=== PATIENT | female | born 1995 | race Caucasian/White ===

== ENCOUNTER 2017-12-13 09:13 | Emergency (ER) | payer OTHER, SELFPAY ==
[2017-12-13 09:21] VITALS: BP 118/63; PULSE 72; RESP 14; TEMP 36.7; O2SAT 98; BMI 31.4
--- NOTE | 2017-12-13 09:40 | ED.FEMALEGU ---
HPI - Female Genitourinary General Chief complaint: Urogenital-Female Stated complaint: POSSIBLE BLADDER INFECTION Time Seen by Provider: 12/13/17 09:17 Source: patient and RN notes reviewed Mode of arrival: ambulatory Limitations: no limitations History of Present Illness HPI Narrative: Patient is a 22-year-old female who presents with painful frequent urination. She says started up about 3 or 4 days ago. Her came home from to appointment a week ago. She denies any flank pain abdominal pain nausea vomiting or fevers. She is taking Pyridium which is not helping. MD Complaint: UTI Related Data Home Medications Medication Instructions Recorded Confirmed 1 tab PO DAILY 12/02/17 12/02/17 vitamin,calcium,zbzpvdrt-gkgf-ltnoz acid tablet ranitidine 75 mg tablet 75 mg PO BID PRN 12/02/17 12/02/17 Previous Rx's Medication Instructions Recorded sulfamethoxazole-trimethoprim 1 tab PO BID 5 Days #10 tab 12/13/17 [Bactrim DS] Allergies Allergy/AdvReac Type Severity Reaction Status Date / Time No Known Drug Allergies Allergy Unverified 12/02/17 10:55 Review of Systems Review of Systems All systems reviewed & are unremarkable except as noted in HPI and below Constitutional Denies chills, Denies fever(s), Denies lethargy and Denies weakness Cardiovascular Denies dyspnea and Denies dyspnea on exertion Respiratory Denies cough, Denies dyspnea, Denies dyspnea on exertion and Denies wheezing Gastrointestinal Gastrointestinal: Denies abdominal pain, Denies change in bowel habits, Denies diarrhea, Denies nausea and Denies vomiting Genitourinary Reports system reviewed and no additional complaints, except as docu Neurologic Denies weakness Allergic/Immunologic Denies wheezing [facility] Medical History Situational anxiety (Chronic) Irritable bowel syndrome (Chronic) Family History Grandfather Diabetes mellitus Heart disease Father Cancer Social History Smoking Status: Never smoker second hand exposure: No substance use type: does not use Exam Initial Vital Signs Initial Vital Signs: Vital Signs Temperature 98.0 F 12/13/17 09:21 Pulse Rate 72 12/13/17 09:21 Respiratory Rate 14 12/13/17 09:21 Blood Pressure 118/63 12/13/17 09:21 Pulse Oximetry 98 12/13/17 09:21 Const General: cooperative and well developed Nutritional Appearance: well nourished Orientation: alert, awake, oriented x3 and not confused GI Inspection: non-distended Palpation: soft, no hepatosplenomegaly, No guarding, No pulsatile mass and No tender Auscultation: normal bowel sounds General: bimanual renal exam normal bilaterally and No CVA tenderness Skin General: no rashes or lesions noted, No jaundice and No petechiae Neuro General: alert, awake and oriented x3 Course Orders Ordered: ED Orders 12/13/17 09:25 Urinalysis and Microscopic Stat Vital Signs - 8 hr 12/13/17 09:21 Temperature 98.0 F Pulse Rate 72 Respiratory Rate 14 Blood Pressure 118/63 Pulse Oximetry 98 MDM - Female Genitourinary Lab Data Attestation: I reviewed the patient's lab results. Lab Results 12/13/17 Range/Units 09:25 Urine Color Dark yellow Urine Appearance Clear Urine pH 7.5 (4.5-8.0) Ur Specific [place] 1.015 (1.000-1.035) Urine Protein 1+ H (Negative) Urine Glucose (UA) Trace H (Negative) g/dL Urine Ketones Negative (NEGATIVE) Urine Occult Blood 3+ H (Negative) Urine Nitrate Positive H (Negative) Urine Bilirubin Negative (NEGATIVE) Urine Urobilinogen 1.0 (0.2) E.U./dL Ur Leukocyte Esterase Trace H (NEGATIVE) Urine RBC 1-5/hpf (0-5/HPF) Urine WBC 0-1/hpf (0-5/HPF) Ur Squamous Epith Cells 10-30 /hpf H Urine Bacteria Few (2-10) H (None) Urine Mucus 1+ H (Negative) Ur Culture Indicated? Not Reportable Micro UA Comment Discharge Plan Departure Patient Disposition: Home, Self-Care Clinical Impression: Urinary tract infection Discharge Date/Time: 12/13/17 10:11 Interventions: ED Discharge Assessment Last Done: 12/13/17 10:09 Instructions: DI for Urinary Tract Infection (UTI) Activity Restrictions/Additional Instructions: *You have been diagnosed with UTI *What to do: increase fluids *Take medications as directed *Follow up with your primary care provider in 2-3 days *Return to ER if you should have any new, worsening or concerning symptoms Prescriptions: New sulfamethoxazole-trimethoprim [Bactrim DS] 800-160 mg tablet 1 tab PO BID 5 Days Qty: 10 RF: 0 No Action ranitidine HCl [Zantac 75] 75 mg tablet 75 mg PO BID PRNRF: 0 prenat.vits,reinaldo,arn-jriz-xurmn [ Vitamin] tablet 1 tab PO DAILY RF: 0 Referrals: Nuria Dorsey MD [Primary Care Provider] -
[2017-12-13 09:41] LABS: Appearance Urine UA CLEAR; Bilirubin Urine UA NEGATIVE (NEGATIVE); Glucose Urine UA TRACE g/dL (Negative); Ketones Urine UA NEGATIVE (NEGATIVE); Leukocyte Esterase Urine UA TRACE (NEGATIVE); Nitrite Urine UA POSITIVE (Negative); Occult Blood Urine UA 3+ (Negative); Protein Urine UA 1+ (Negative); Specific Gravity Urine UA 1.015 (1.000-1.035); pH Urine UA 7.5 (4.5-8.0)
[2017-12-13 09:44] LABS: Color Urine UA Dark Yellow
--- NOTE | 2017-12-13 09:54 | ED_ITS ---
HPI - Female Genitourinary General Chief complaint: Urogenital-Female Stated complaint: POSSIBLE BLADDER INFECTION Time Seen by Provider: 12/13/17 09:17 Source: patient and RN notes reviewed Mode of arrival: ambulatory Limitations: no limitations History of Present Illness HPI Narrative: Patient is a 22-year-old female who presents with painful frequent urination. She says started up about 3 or 4 days ago. Her came home from to appointment a week ago. She denies any flank pain abdominal pain nausea vomiting or fevers. She is taking Pyridium which is not helping. MD Complaint: UTI Related Data Home Medications Medication Instructions Recorded Confirmed 1 tab PO DAILY 12/02/17 12/02/17 vitamin,calcium,gztykfhs-loba-corot acid tablet ranitidine 75 mg tablet 75 mg PO BID PRN 12/02/17 12/02/17 Previous Rx's Medication Instructions Recorded sulfamethoxazole-trimethoprim 1 tab PO BID 5 Days #10 tab 12/13/17 [Bactrim DS] Allergies Allergy/AdvReac Type Severity Reaction Status Date / Time No Known Drug Allergies Allergy Unverified 12/02/17 10:55 Review of Systems Review of Systems All systems reviewed & are unremarkable except as noted in HPI and below Constitutional Denies chills, Denies fever(s), Denies lethargy and Denies weakness Cardiovascular Denies dyspnea and Denies dyspnea on exertion Respiratory Denies cough, Denies dyspnea, Denies dyspnea on exertion and Denies wheezing Gastrointestinal Gastrointestinal: Denies abdominal pain, Denies change in bowel habits, Denies diarrhea, Denies nausea and Denies vomiting Genitourinary Reports system reviewed and no additional complaints, except as docu Neurologic Denies weakness Allergic/Immunologic Denies wheezing [facility] Medical History Situational anxiety (Chronic) Irritable bowel syndrome (Chronic) Family History Grandfather Diabetes mellitus Heart disease Father Cancer Social History Smoking Status: Never smoker second hand exposure: No substance use type: does not use Exam Initial Vital Signs Initial Vital Signs: Vital Signs Temperature 98.0 F 12/13/17 09:21 Pulse Rate 72 12/13/17 09:21 Respiratory Rate 14 12/13/17 09:21 Blood Pressure 118/63 12/13/17 09:21 Pulse Oximetry 98 12/13/17 09:21 Const General: cooperative and well developed Nutritional Appearance: well nourished Orientation: alert, awake, oriented x3 and not confused GI Inspection: non-distended Palpation: soft, no hepatosplenomegaly, No guarding, No pulsatile mass and No tender Auscultation: normal bowel sounds General: bimanual renal exam normal bilaterally and No CVA tenderness Skin General: no rashes or lesions noted, No jaundice and No petechiae Neuro General: alert, awake and oriented x3 Course Orders Ordered: ED Orders 12/13/17 09:25 Urinalysis and Microscopic Stat Vital Signs - 8 hr 12/13/17 09:21 Temperature 98.0 F Pulse Rate 72 Respiratory Rate 14 Blood Pressure 118/63 Pulse Oximetry 98 MDM - Female Genitourinary Lab Data Attestation: I reviewed the patient's lab results. Lab Results 12/13/17 Range/Units 09:25 Urine Color Dark yellow Urine Appearance Clear Urine pH 7.5 (4.5-8.0) Ur Specific [place] 1.015 (1.000-1.035) Urine Protein 1+ H (Negative) Urine Glucose (UA) Trace H (Negative) g/dL Urine Ketones Negative (NEGATIVE) Urine Occult Blood 3+ H (Negative) Urine Nitrate Positive H (Negative) Urine Bilirubin Negative (NEGATIVE) Urine Urobilinogen 1.0 (0.2) E.U./dL Ur Leukocyte Esterase Trace H (NEGATIVE) Urine RBC 1-5/hpf (0-5/HPF) Urine WBC 0-1/hpf (0-5/HPF) Ur Squamous Epith Cells 10-30 /hpf H Urine Bacteria Few (2-10) H (None) Urine Mucus 1+ H (Negative) Ur Culture Indicated? Not Reportable Micro UA Comment Discharge Plan Departure Patient Disposition: Home, Self-Care Clinical Impression: Urinary tract infection Discharge Date/Time: 12/13/17 10:11 Interventions: ED Discharge Assessment Last Done: 12/13/17 10:09 Instructions: DI for Urinary Tract Infection (UTI) Activity Restrictions/Additional Instructions: *You have been diagnosed with UTI *What to do: increase fluids *Take medications as directed *Follow up with your primary care provider in 2-3 days *Return to ER if you should have any new, worsening or concerning symptoms Prescriptions: New sulfamethoxazole-trimethoprim [Bactrim DS] 800-160 mg tablet 1 tab PO BID 5 Days Qty: 10 RF: 0 No Action ranitidine HCl [Zantac 75] 75 mg tablet 75 mg PO BID PRNRF: 0 prenat.vits,reinaldo,ysk-plfz-rpgtp [ Vitamin] tablet 1 tab PO DAILY RF: 0 Referrals: Nuria Dorsey MD [Primary Care Provider] -
[2017-12-13 10:05] LABS: Bacteria Urine Few (2-10); Mucus Urine 1+ (Negative); RBC Urine 1-5/HPF (0-5/HPF); Squamous Epithelial Cell Urine 10-30 /HPF; WBC Urine 0-1/HPF (0-5/HPF)
== END 2017-12-13 10:11 | disposition home or self-care (01) ==
PROVIDERS: Emergency Provider Emergency Medicine; PCP Family Medicine
DX: N39.0 Urinary tract infection, site not specified (principal)
CPT/HCPCS: 81001; 81025; 99283

== ENCOUNTER 2017-12-21 10:00 | Emergency (ER) | payer OTHER, SELFPAY ==
[2017-12-21 10:21] VITALS: BP 115/69; PULSE 79; RESP 13; TEMP 36.5; O2SAT 98
[2017-12-21 10:37] LABS: Appearance Urine UA SL CLOUDY; Bilirubin Urine UA NEGATIVE (NEGATIVE); Color Urine UA YELLOW; Glucose Urine UA NEGATIVE (Normal); Ketones Urine UA NEGATIVE (NEGATIVE); Leukocyte Esterase Urine UA 2+ (NEGATIVE); Nitrite Urine UA Negative (Negative); Occult Blood Urine UA NEGATIVE (Negative); Protein Urine UA NEGATIVE (Negative); Specific Gravity Urine UA 1.025 (1.000-1.035); Urobilinogen Urine UA 0.2 E.U./dL (0.2); pH Urine UA 5.5 (4.5-8.0)
[2017-12-21 10:42] LABS: Bacteria Urine Many (>30); Culture Indicated Urine Cult Not Indicated; RBC Urine None Seen (0-5/HPF); Squamous Epithelial Cell Urine 10-30 /HPF; WBC Urine 10-30/HPF (0-5/HPF)
[2017-12-21 11:34] VITALS: BP 110/72; PULSE 70; RESP 20; O2SAT 98
--- NOTE | 2017-12-21 11:51 | ED.FEMALEGU ---
HPI - Female Genitourinary General Chief complaint: Urogenital-Female Stated complaint: BLADDER INFECTION Time Seen by Provider: 12/21/17 10:10 History of Present Illness HPI Narrative: HPI 22-year-old female presents for evaluation of 1+ weeks of dysuria, urinary frequency, and vaginal discomfort without discharge. Patient reports that she was seen one week ago for urinary tract infection, prescribed antibiotics (chart review indicates Bactrim) which she took without improvement of symptoms. ROS with no recent constitutional symptoms. Exam Gen: Pleasant, nontoxic-appearing, resting comfortably. HEENT: NC, AT, PEERL, EOMI. Resp: Unlabored respirations with a normal work of breathing. Card: Extremities warm and well perfused. GI: Non-distended. : Deferred MSK: No visible deformities, strength and tone without visually appreciable deficit. Neuro: AO x 3, no facial asymmetry, vision and hearing WNL. Heme/Lymph: Deferred Skin: Normal color with no visible lesions (other than noted above). Psych: Mood and affect appropriate. UA - negative nitrate, 2+ leukocyte esterase, no RBCs, 10-30 WBCs, 10-30 squamous epithelial cells, many bacteria. Negative urine test MDM Previous chart, nursing note, and vitals reviewed. A: 22-year-old female presents for evaluation of 1+ weeks of dysuria, urinary frequency, and vaginal discomfort without discharge. DDx & Evaluation: patient's urinalysis is suggestive of urinary tract infection, however the large amount of squamous epithelial cells and negative nitrates indicates that this is an equivocal study. Discussed with the patient time of evaluation would be that if initial urinalysis is unclear pelvic exam would be necessary to evaluate for other explained etiologies the patient's symptoms. A repeat urinalysis and pelvic exam were ordered. The patient declined these as she stated that she has an appointment elsewhere. Patient declined further evaluation. Patient was prescribed cephalexin to treat possibly urinary tract infection and discharged against medical advice as are his ongoing concern of a missed diagnosis. The patient was discharged against medical advice. The patient had capacity as they were clinically sober, free from distracting injury, and they appear to have intact insight and judgment and reason and in my opinion have the capacity to make decisions. I am concerned about the patient's lack of a complete valuation including concerns for PID, infertility, future ectopic pregnancies, or the development of pyelonephritis due to lack of adequate urine culture and inappropriate antimicrobial choice. At the time of discharge, the patient's evaluation is limited as the patient declined repeat urinalysis and a pelvic exam. Impression: dysuria (please reference below for remainder of encounter information) Related Data Home Medications Medication Instructions Recorded Confirmed 1 tab PO DAILY 12/02/17 12/21/17 vitamin,calcium,eqabgxhl-jmko-erlgh acid tablet ranitidine 75 mg tablet 75 mg PO BID PRN 12/02/17 12/21/17 Allergies Allergy/AdvReac Type Severity Reaction Status Date / Time No Known Drug Allergies Allergy Unverified 12/02/17 10:55 [facility] Family History Grandfather Diabetes mellitus Heart disease Father Cancer Social History Smoking Status: Never smoker second hand exposure: No substance use type: does not use Exam Initial Vital Signs Initial Vital Signs: Vital Signs Temperature 97.7 F 12/21/17 10:21 Pulse Rate 79 12/21/17 10:21 Respiratory Rate 13 12/21/17 10:21 Blood Pressure 115/69 12/21/17 10:21 Pulse Oximetry 98 12/21/17 10:21 Course Orders Ordered: ED Orders 12/21/17 10:20 Urinalysis and Microscopic Stat 12/21/17 11:01 GC Screen Stat Urinalysis and Microscopic Stat Wet Prep Tric BV [place]iz[place] Stat Discontinued Medications Diphenhydramine HCl (Benadryl) 25 mg IV NOW ONE Stop: 12/21/17 11:32 Last Admin: 12/21/17 11:35 Dose: Not Given Haloperidol (Haldol) 3 mg IV NOW ONE Stop: 12/21/17 11:32 Last Admin: 12/21/17 11:35 Dose: Not Given Vital Signs - 8 hr 12/21/17 10:21 12/21/17 11:34 Temperature 97.7 F Pulse Rate 79 70 Respiratory Rate 13 20 Blood Pressure 115/69 Blood Pressure [Right Arm] 110/72 Pulse Oximetry 98 98 MDM - Female Genitourinary Lab Data Lab Results 12/21/17 Range/Units 10:20 Urine Color Yellow Urine Appearance Sl cloudy Urine pH 5.5 (4.5-8.0) Ur Specific [place] 1.025 (1.000-1.035) Urine Protein Negative (Negative) Urine Glucose (UA) Negative (Normal) g/dL Urine Ketones Negative (NEGATIVE) Urine Occult Blood Negative (Negative) Urine Nitrate Negative (Negative) Urine Bilirubin Negative (NEGATIVE) Urine Urobilinogen 0.2 (0.2) E.U./dL Ur Leukocyte Esterase 2+ H (NEGATIVE) Urine RBC None seen (0-5/HPF) Urine WBC 10-30/hpf H (0-5/HPF) Ur Squamous Epith Cells 10-30 /hpf H Urine Bacteria Many (>30) H (None) Ur Culture Indicated? Cult not indicated Micro UA Comment Not Reportable Discharge Plan Departure Prescriptions: No Action ranitidine HCl [Zantac 75] 75 mg tablet 75 mg PO BID PRN (Reason: Acid Reflux) RF: 0 prenat.vits,reinaldo,xtv-amls-asmlj [ Vitamin] tablet 1 tab PO DAILY RF: 0
== END 2017-12-21 11:58 | disposition home or self-care (01) ==
PROVIDERS: Emergency Provider Emergency Medicine; PCP Family Medicine
DX: R30.0 Dysuria (principal)
CPT/HCPCS: 81001; 81003; 81025; 99283

== ENCOUNTER → 2017-12-22 10:35 | Outpatient (CLI) | payer OTHER, SELFPAY ==
[2017-12-22 11:57] LABS: Add Manual Diff / Slide Review NO; Basophils Percent Auto 1.6 % (0-2); Eosinophils Percent Auto 3.3 % (2-4); Hematocrit 39.3 % (36-46); Hemoglobin 13.5 g/dL (12.0-16.0); Lymphocytes Percent Auto 39.4 % (25-40); Mean Corpuscular HGB Conc 34.3 % (30-36); Mean Corpuscular Hemoglobin 30.2 PG (26-34); Mean Corpuscular Volume 88.1 fL (80-100); Monocytes Percent Auto 8.7 % (3-14); Neutrophils Absolute Auto 2100 /uL (3000-5900); Platelet Count 196 X10^3/uL (150-400); Red Blood Cell Count 4.46 X10^6/uL (4.0-5.2); Red Cell Distribution Width 13.2 % (11.6-14.8); White Blood Cell Count 4.5 X10^3/uL (4.5-11.0)
[2017-12-22 12:34] LABS: TSH w/ Reflex to FT4 1.28 uIU/mL (0.47-4.68)
== END ==
PROVIDERS: PCP Family Medicine; Visit Provider Family Medicine
DX: R53.83 Other fatigue (principal)
CPT/HCPCS: 36415; 84443; 85025

== ENCOUNTER 2018-01-03 15:32 | Emergency (ER) | payer OTHER, SELFPAY ==
[2018-01-03 15:35] VITALS: BP 110/65; PULSE 80; RESP 20; TEMP 36.9; O2SAT 99
--- NOTE | 2018-01-03 17:10 | ED_ITS ---
HPI - General Chief complaint: Vaginal Bleeding Stated complaint: PELVIC PAIN ON GOING ISSUE Time Seen by Provider: 01/03/18 16:35 Source: patient Mode of arrival: ambulatory Limitations: no limitations History of Present Illness HPI Narrative: Patient is a 22-year-old female who was initially treated for UTI on December 13. She then had persistent ongoing symptoms. She was seen on December 21 in the ED were she did not want a pelvic done. She was seen on December 22 by her primary where she had swabs but no pelvic. She continues to have extreme vaginal pain burning and some itching. She has not noticed any smell. She has no lower abdominal pain. She has had multiple urines taken, but none have back actually grown any bacteria. She has not yet had a former pelvic exam willing to do so today. She also has appointment with a new OB this week. Complaint: vaginal discharge Related Data Home Medications Medication Instructions Recorded Confirmed 1 tab PO DAILY 12/02/17 12/21/17 vitamin,calcium,efrtrvtr-acis-lgwga acid tablet ranitidine 75 mg tablet 75 mg PO BID PRN 12/02/17 12/21/17 Previous Rx's Medication Instructions Recorded doxycycline hyclate 100 mg PO Q12H #14 cap 01/03/18 Allergies Allergy/AdvReac Type Severity Reaction Status Date / Time No Known Drug Allergies Allergy Unverified 12/02/17 10:55 Review of Systems Review of Systems GENERAL: Denies chills, fatigue, malaise, fever, sweats, travel HEENT: Denies sinus pain, ear pain, sore throat, difficulty swallowing, neck pain RESPIRATORY: Denies dyspnea, cough, wheezing, hemoptysis, sputum. CARDIOVASCULAR: Denies chest pain, palpitations, orthopnea, edema GASTROINTESTINAL: Denies nausea, vomiting, abdominal pain, diarrhea, constipation, melena. : Denies dysuria, frequency, incontinence, hematuria, urinary retention, flank pain. MUSCULOSKELETAL: Denies weakness, joint pain, or bony pain SKIN: No rash, no erythema, no pruritus NEUROLOGIC: Denies weakness, dizziness, headache, numbness, change in speech, confusion PSYCHIATRIC: No concerning psychosocial issues. 12 point review of systems is negative except for those stated above and HPI All systems reviewed & are unremarkable except as noted in HPI and below Constitutional Denies chills, Denies fever(s), Denies lethargy and Denies weakness Cardiovascular Denies chest pain, Denies irregular heart rhythm, Denies lightheadedness, Denies palpitations and Denies orthopnea Genitourinary Reports system reviewed and no additional complaints, except as docu and Reports as per HPI Musculoskeletal Denies back pain, Denies muscle weakness, Denies numbness and Denies tingling Neurologic Denies numbness, Denies tingling and Denies weakness Endocrine Denies palpitations PMFSH - Past Medical History Medical history: Reports no medical history Surgical history: Reports no surgical history Exam Initial Vital Signs Initial Vital Signs: Vital Signs Temperature 98.4 F 01/03/18 15:35 Pulse Rate 80 01/03/18 15:35 Respiratory Rate 20 01/03/18 15:35 Blood Pressure 110/65 01/03/18 15:35 Pulse Oximetry 99 01/03/18 15:35 GENERAL: Well-appearing, well-nourished and in no acute distress. CARDIOVASCULAR: peripheral pulses in tact, cap refill <2 sec RESPIRATORY: No respiratory distress, speaks in full sentences without difficulty ABDOMEN: Soft, nontender, no guarding or rebound EXTREMITIES: Normal range of motion, no clubbing or edema. Neurovascularly intact NEUROLOGICAL: Cranial nerves II through XII grossly intact. Normal gait and speech. SKIN: Warm, dry, no petechiae, no rashes or lesions. External Female Exam: external appearance normal, normal appearance of the urethra, no erythema, no tenderness externally and no external swelling Speculum Exam - Vagina: normal appearance of the vagina and abnormal vaginal discharge white and yellow Speculum Exam - Cervix: closed cervix and abnormal cervical discharge white; Negative for malodorous Bimanual Exam- Vagina & Uterus: normal bimanual exam Bimanual Exam- Adnexa, other: normal adnexae Course Orders Ordered: ED Orders 01/03/18 17:00 Test Urine Stat UA Complete [Urinalysis and Microscopic] Stat Urine Culture Stat Wet Prep Tric BV Rizwana Stat 01/03/18 17:10 Wet Prep Tric BV Riz[place]ana Stat 01/03/18 17:12 Genital Culture Stat 01/03/18 17:54 Genital Culture Stat Discontinued Medications Ceftriaxone Sodium (Rocephin) 250 mg IM NOW ONE Stop: 01/03/18 17:11 Vital Signs - 8 hr 01/03/18 15:35 01/03/18 17:56 Temperature 98.4 F Pulse Rate 80 66 Respiratory Rate 20 13 Blood Pressure 110/65 Blood Pressure [Right Arm] 110/53 L Pulse Oximetry 99 100 MDM - OB/Uterine Contractions Lab Data Lab Results 01/03/18 01/03/18 Range/Units 17:00 17:00 Urine Color Yellow Urine Appearance Clear Urine pH 5.5 (4.5-8.0) Ur Specific [place] 1.025 (1.000-1.035) Urine Protein Negative (Negative) Urine Glucose (UA) Negative (Normal) g/dL Urine Ketones Negative (NEGATIVE) Urine Occult Blood Negative (Negative) Urine Nitrate Negative (Negative) Urine Bilirubin Negative (NEGATIVE) Urine Urobilinogen 0.2 (0.2) E.U./dL Ur Leukocyte Esterase 1+ H (NEGATIVE) Urine RBC None seen (0-5/HPF) Urine WBC 1-5/hpf (0-5/HPF) Ur Squamous Epith Cells 0-1 /hpf D Urine Bacteria None seen (None) Ur Culture Indicated? Specimen cultured Micro UA Comment Not Reportable Urine Test Negative (Negative) MDM Narrative Medical decision making narrative: Patient's exam was quite tender and cervix is friable with lots of a vaginal and cervical discharge. At this time treat for presumed STD. She will follow up with OB this week where she could get results. Discharge Plan Departure Patient Disposition: Home, Self-Care Clinical Impression: Acute pelvic inflammatory disease (PID) Instructions: DI for Pelvic Inflammatory Disease Activity Restrictions/Additional Instructions: *You have been diagnosed with pelvic inflammatory disease *What to do: You have been treated for a presumed infection, cultures are still pending. Please check with you're provider this week on of results. If results are positive the emergency department will call you. If they are negative the emergency department will NOT be call. *Continue to take medications as directed Doxycycline 1 tab twice a day-faxed to [facility] in [place] *Follow up with your primary care provider in 2-3 days *Return to ER if you should have any new, worsening or concerning symptoms Prescriptions: New doxycycline hyclate 100 mg capsule 100 mg PO Q12H Qty: 14 RF: 0 No Action ranitidine HCl [Zantac 75] 75 mg tablet 75 mg PO BID PRN (Reason: Acid Reflux) RF: 0 prenat.vits,reinaldo,czl-sqke-idtmf [ Vitamin] tablet 1 tab PO DAILY RF: 0 Referrals: Nuria Dorsey MD [Primary Care Provider] -
--- NOTE | 2018-01-03 17:13 | PC.NURSE ---
primary complaint is worsening vaginal issues
[2018-01-03 17:28] LABS: Bacteria Urine None Seen; RBC Urine None Seen (0-5/HPF)
[2018-01-03 17:31] LABS: Appearance Urine UA CLEAR; Bilirubin Urine UA NEGATIVE (NEGATIVE); Color Urine UA YELLOW; Glucose Urine UA NEGATIVE (Normal); Ketones Urine UA NEGATIVE (NEGATIVE); Leukocyte Esterase Urine UA 1+ (NEGATIVE); Nitrite Urine UA Negative (Negative); Occult Blood Urine UA NEGATIVE (Negative); Protein Urine UA NEGATIVE (Negative); Specific Gravity Urine UA 1.025 (1.000-1.035); Urobilinogen Urine UA 0.2 E.U./dL (0.2); pH Urine UA 5.5 (4.5-8.0)
[2018-01-03 17:36] LABS: Pregnancy Test Urine Negative (Negative)
--- NOTE | 2018-01-03 17:38 | PC.NURSE ---
stand by assist with pelvic exam, pt tolerated well.
[2018-01-03 17:40] LABS: WBC Urine 1-5/HPF (0-5/HPF)
[2018-01-03 17:41] LABS: Culture Indicated Urine Specimen Cultured; Squamous Epithelial Cell Urine 0-1 /HPF
[2018-01-03 17:56] VITALS: BP 110/53; PULSE 66; RESP 13; O2SAT 100
[2018-01-03] MEDS: cefTRIAXone 500 MG VIAL 250 MG IM (18:01)
[2018-01-03 19:03] VITALS: BP 109/71; PULSE 68; RESP 17; TEMP 36.8; O2SAT 99
== END 2018-01-03 18:20 | disposition home or self-care (01) ==
PROVIDERS: Emergency Provider Emergency Medicine; PCP Family Medicine
DX: N73.0 Acute parametritis and pelvic cellulitis (principal)
CPT/HCPCS: 81001; 81025; 87070; 87077; 87086; 87205; 87210; 87491; 87591; 96372; 99282; 99283; J0696

== ENCOUNTER → 2018-10-08 11:31 | Outpatient (CLI) | payer OTHER, SELFPAY ==
[2018-10-08 12:06] LABS: Influenza A and B by PCR Rapid Negative (Negative)
== END ==
PROVIDERS: PCP Family Medicine; Visit Provider Registered Nurse
DX: J06.9 Acute upper respiratory infection, unspecified (principal)
CPT/HCPCS: 87400

== ENCOUNTER 2019-01-07 12:41 | Emergency (ER) | payer OTHER, SELFPAY ==
[2019-01-07 12:49] VITALS: BP 124/66; PULSE 99; RESP 16; TEMP 36.9; O2SAT 97; BMI 32.9
[2019-01-07 13:29] LABS: Add Manual Diff / Slide Review NO; Basophils Absolute Auto 100 /uL (0-100); Basophils Percent Auto 0.9 % (0-2); Eosinophils Absolute Auto 100 /uL (0-450); Eosinophils Percent Auto 1.8 % (2-4); Hematocrit 38.1 % (36-46); Lymphocytes Absolute Auto 1700 /uL (1100-4500); Lymphocytes Percent Auto 27.7 % (25-40); Mean Corpuscular HGB Conc 34.2 % (30-36); Mean Corpuscular Hemoglobin 30.5 PG (26-34); Mean Corpuscular Volume 89.1 fL (80-100); Monocytes Absolute Auto 900 /uL (0-900); Monocytes Percent Auto 14.7 % (3-14); Neutrophils Absolute Auto 3400 /uL (1500-7000); Neutrophils Percent Auto 54.9 % (50-75); Platelet Count 179 X10^3/uL (150-400); Red Blood Cell Count 4.28 X10^6/uL (4.0-5.2); Red Cell Distribution Width 12.9 % (11.6-14.8); White Blood Cell Count 6.2 X10^3/uL (4.5-11.0)
[2019-01-07 13:36] LABS: INR 1.1 (0.9-1.3); Prothrombin Time 12.4 SECONDS (10.1-12.7)
[2019-01-07 13:39] LABS: Alanine Aminotransferase 42 IU/L (9-52); Albumin 4.5 g/dL (3.5-5.0); Albumin Globulin Ratio 1.5 (1.0-2.8); Alkaline Phosphatase 98 U/L (38-126); Aspartate Aminotransferase 29 IU/L (14-36); Bilirubin Total 0.7 mg/dL (0.2-1.3); Blood Urea Nitrogen 14 mg/dL (7-17); Calcium 9.1 mg/dL (8.4-10.2); Carbon Dioxide 27 mmol/L (22-32); Chloride 103 mmol/L (98-107); Estimated Glomerular Filt Rate > 60.0 mL/min (>60); Glucose 114 mg/dL (70-100); HEMOLYSIS < 15 (0-50); Lipase 89 U/L (23-300); PTT Partial Thromboplastin Tim 33 SECONDS (26.4-36.2); Potassium 4.4 mmol/L (3.4-5.1); Sodium 138 mmol/L (137-145); Total Protein 7.5 g/dL (6.3-8.2)
[2019-01-07 14:20] VITALS: BP 116/74; PULSE 101; RESP 16; O2SAT 99
--- NOTE | 2019-01-07 14:21 | PC.NURSE ---
9 weeks with no complications.
--- NOTE | 2019-01-07 14:24 | ED.ABDPAIN ---
HPI - Abdominal Pain <Eva Ashley PA-C - Last Filed: 01/07/19 20:31> General Chief Complaint: Abdominal Pain Stated Complaint: abdominal pain Time Seen by Provider: 01/07/19 14:24 Source: patient Mode of arrival: ambulatory Limitations: no limitations History of Present Illness HPI narrative: This is 23-year-old female is sent to ED secondary to 2 week history of abdominal pain, which she initially thought was pain (9 weeks , states all was well at her last visit). She states that she was seen at her PCP office today for this and are felt further workup was needed so sent here. She states that the pain started as more crampy pelvic pain, mild, radiating up further into the abdomen. She states that this gradually moved up into the right lower quadrant more than upper areas, under the ribs. She states that pain is worse with trying to eat any type of food. She states that she has not had any vomiting but has had some nausea with this. She has had some diarrhea but also feels like she has to strain and is constipated at times. She does have a history of IBS but no recent symptoms. She states that she does have a history of acid reflux and multiple gastric and intestinal ulcers. She takes Zantac for this as needed, mainly gets reflux at night. She states that abdominal pain is not very persistent time parker, tends to be worse at night and in the morning. She states that she has had some fever intermittently, high as 99.8, 99.5 last night. She was seen at an urgent care for this 8 days ago and no further workup done at that point. She denies any new chest pain, dyspnea, pain or swelling in her extremities. She also complains of history of right earache, sore throat, and swollen glands that started 4 days ago. She states that she has not had cough or other respiratory symptoms with this but she was exposed to a relative who had upper respiratory infection. She notes that she was also seen at urgent care last Thursday and prescribed a Z-Stef for impetigo, which she will finish today. She states that today, it is painful to push on the right side of her abdomen but does not feel like pain is severe otherwise, has waxed and waned in severity. She states this is ?belly button up?. 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 Related Data Home Medications Medication Instructions Recorded Confirmed ranitidine 75 mg tablet 75 mg PO BID PRN 12/02/17 01/07/19 azithromycin 250 mg PO DAILY 01/07/19 01/07/19 diphenhydramine HCl [Benadryl] 25 mg PO BEDTIME PRN 01/07/19 01/07/19 1 tab PO DAILY 01/07/19 01/07/19 vitamin,calcium,cjzlxads-hbnu-pjzen acid tablet Allergies Allergy/AdvReac Type Severity Reaction Status Date / Time No Known Drug Allergies Allergy Verified 01/07/19 12:49 Review of Systems <Eva Ashley PA-C - Last Filed: 01/07/19 20:31> Review of Systems ROS Unobtainable: All systems reviewed & are unremarkable except as noted in HPI and below PFSH <Eva Ashley PA-C - Last Filed: 01/07/19 20:31> Medical History (Updated 01/07/19 @ 16:17 by Eva Ashley PA-C) History of gastric ulcer (Chronic) Situational anxiety (Chronic) Irritable bowel syndrome (Chronic) Surgical History (Updated 01/07/19 @ 14:52 by Eva Ashley PA-C) Status post cholecystectomy (Resolved) Family History (Updated 12/04/17 @ 17:07 by Nuria Dorsey MD) Grandfather Diabetes mellitus Heart disease Father Cancer Social History Smoking Status: Never smoker second hand exposure: No substance use type: does not use Family History (Updated 12/04/17 @ 17:07 by Nuria Dorsey MD) Grandfather Diabetes mellitus Heart disease Father Cancer Social History Smoking Status: Never smoker second hand exposure: No substance use type: does not use Exam <Eva Ashley PA-C - Last Filed: 01/07/19 20:31> Narrative Exam Narrative: GENERAL APPEARANCE: Patient sitting comfortably, in no distress. HEENT: PERRL, EOMI, no scleral icterus, conjunctivae pink. TMs are intact with normal light reflexes, throat mild erythema, no exudate. NECK: Supple shotty tender anterior nodes, more on the right, no posterior nodes LUNGS: Clear to auscultation bilaterally. HEART: Rate and rhythm regular, normal S1 and S2, no S3 or S4. ABDOMEN: Soft, nondistended, bowel sounds present x 4 quadrants, no masses palpable, no hepatosplenomegaly. Moderate tenderness throughout the abdomen, exquisitely tender over the right upper quadrant with positive Martino sign EXTREMITIES: No edema, no calf tenderness DERMATOLOGIC: No jaundice or exanthem NEUROLOGIC: Alert and oriented with normal speech and coordination Initial Vital Signs Initial Vital Signs: Vital Signs Temperature 98.5 F 01/07/19 12:49 Pulse Rate 99 H 01/07/19 12:49 Respiratory Rate 16 01/07/19 12:49 Blood Pressure 124/66 01/07/19 12:49 Pulse Oximetry 97 01/07/19 12:49 <Doreen Wallis DO - Last Filed: 01/08/19 08:54> Initial Vital Signs Initial Vital Signs: Vital Signs Temperature 98.5 F 01/07/19 12:49 Pulse Rate 99 H 01/07/19 12:49 Respiratory Rate 16 01/07/19 12:49 Blood Pressure 124/66 01/07/19 12:49 Pulse Oximetry 97 01/07/19 12:49 Course <Eva Ashley PA-C - Last Filed: 01/07/19 20:31> Additional Information: Patient does not appear acutely worse today, has had pain for a couple of weeks, mainly right upper quadrant on exam. She also has upper respiratory infection, likely viral given recent exposures and travel. Advised monitoring, restarting ranitidine routinely, and follow up with PCP early next week to talk about further workup/GI referral. She is agreeable with this plan as well as to return if any acutely worsening or new symptoms in the interim Orders Ordered: Discontinued Medications Lidocaine HCl (Viscous Lidocaine 2%) 15 ml PO NOW ONE Stop: 01/07/19 14:41 Last Admin: 01/07/19 15:31 Dose: 15 ml Vital Signs - 8 hr 01/07/19 12:49 01/07/19 14:20 01/07/19 16:21 Temperature 98.5 F Pulse Rate 99 H 101 H 94 H Respiratory Rate 16 16 16 Blood Pressure 124/66 Blood Pressure [Right Arm] 116/74 124/61 Pulse Oximetry 97 99 99 01/07/19 16:25 Temperature Pulse Rate 98 H Respiratory Rate Blood Pressure 116/82 Blood Pressure [Right Arm] Pulse Oximetry 99 <Doreen Wallis DO - Last Filed: 01/08/19 08:54> Orders Ordered: Discontinued Medications Lidocaine HCl (Viscous Lidocaine 2%) 15 ml PO NOW ONE Stop: 01/07/19 14:41 Last Admin: 01/07/19 15:31 Dose: 15 ml Vital Signs - 8 hr 01/07/19 12:49 01/07/19 14:20 01/07/19 16:21 Temperature 98.5 F Pulse Rate 99 H 101 H 94 H Respiratory Rate 16 16 16 Blood Pressure 124/66 Blood Pressure [Right Arm] 116/74 124/61 Pulse Oximetry 97 99 99 01/07/19 16:25 Temperature Pulse Rate 98 H Respiratory Rate Blood Pressure 116/82 Blood Pressure [Right Arm] Pulse Oximetry 99 MDM - Abdominal Pain <Eva Ashley PA-C - Last Filed: 01/07/19 20:31> Lab Data Attestation: I reviewed the patient's lab results. Result diagrams: 01/07/19 13:19 01/07/19 13:19 Lab Results 01/07/19 01/07/19 01/07/19 Range/Units 13:19 13:19 13:19 WBC 6.2 (4.5-11.0) X10^3/uL RBC 4.28 (4.0-5.2) X10^6/uL Hgb 13.0 (12.0-16.0) g/dL Hct 38.1 (36-46) % MCV 89.1 (80-100) fL MCH 30.5 (26-34) PG MCHC 34.2 (30-36) % RDW 12.9 (11.6-14.8) % Plt Count 179 (150-400) X10^3/uL Neut % (Auto) 54.9 (50-75) % Lymph % (Auto) 27.7 (25-40) % [place] % (Auto) 14.7 H (3-14) % Eos % (Auto) 1.8 L (2-4) % Baso % (Auto) 0.9 (0-2) % Neut # (Auto) 3400 (7160-9173) /uL Lymph # (Auto) 1700 (6029-0962) /uL [place] # (Auto) 900 (0-900) /uL Eos # (Auto) 100 (0-450) /uL Baso # (Auto) 100 (0-100) /uL PT 12.4 (10.1-12.7) SECONDS INR 1.1 (0.9-1.3) APTT 33 (26.4-36.2) SECONDS Sodium 138 (137-145) mmol/L Potassium 4.4 (3.4-5.1) mmol/L Chloride 103 (98-107) mmol/L Carbon Dioxide 27 (22-32) mmol/L BUN 14 (7-17) mg/dL Creatinine 0.70 (0.52-1.04) mg/dL Estimated GFR > 60.0 (>60) mL/min BUN/Creatinine Ratio 20.0 (6-22) Glucose 114 H (70-100) mg/dL Calcium 9.1 (8.4-10.2) mg/dL Total Bilirubin 0.7 (0.2-1.3) mg/dL AST 29 (14-36) IU/L ALT 42 (9-52) IU/L Alkaline Phosphatase 98 (38-126) U/L Total Protein 7.5 (6.3-8.2) g/dL Albumin 4.5 (3.5-5.0) g/dL Globulin 3.0 (1.7-4.1) g/dL Albumin/Globulin Ratio 1.5 (1.0-2.8) Lipase 89 (23-300) U/L Point of care testing: Point of Care Testing Rapid Strep A Negative Urine Dip Bedside Urine Glucose Negative Bedside Urine Bilirubin - Negative Bedside Urine Ketone - Negative Urine Specific [place] 1.020 Bedside Urine Occult Blood - Negative Bedside Urine pH 6.0 Bedside Urine Protein - Negative Bedside Urine Urobilinogen +/- 1mg Bedside Urine Nitrite - Negative Bedside Urine Leukocytes - Negative Esterase Imaging Data US - abdomen: Radiologist's impression: 24 Eva Ashley PA-C Find Patient Imaging La Joseph Kelly 23 F 1995 ACTIVITY DATE EXAM STATUS AUTHOR 01/07/19 14:40 Signed Wiliam Coronado 01/07/19 14:[address] [place] [address] Ultrasound Report Signed Patient: La Joseph [facility]#: [id number] : 1995Acct:[id number] Age/Sex: 23 / FDate of Service: 01/07/19 Loc: ED Accession Number: [id number] Procedure: US abdomen complete Ordering Provider: Eva Ashely P.A-C PROCEDURE: US ABDOMEN COMPLETE INDICATIONS: RIGHT UPPER QUADRANT/EPIGASTRIC PAIN; S/P CHAVEZ TECHNIQUE: Real-time scanning was performed of the abdominal and retroperitoneal organs, with image documentation. COMPARISON: None. FINDINGS: Liver: Liver is normal in size and homogeneous in echotexture. Gallbladder: Gallbladder is surgically absent. Biliary ducts: Intrahepatic bile ducts are non-dilated. Extrahepatic bile duct caliber measures 4.9 mm. Normal is 6-7 mm or less in diameter, or 10 mm or less post-cholecystectomy. Pancreas: Visualized portions of the pancreas are sonographically normal. Spleen: Spleen is normal in size and homogeneous in echotexture. Kidneys: Kidneys are normal in size and echotexture. Right kidney measures 11 cm long; left kidney measures 10.5 cm long. No hydronephrosis or nephrolithiasis. No solid masses. Aorta: Visualized aorta is normal in caliber at less than 3 cm. Iliacs: Proximal common iliac arteries are normal in caliber at less than 2.5 cm. IVC: Intrahepatic inferior vena cava is patent. Miscellaneous: No free abdominal fluid. IMPRESSION: No acute inflammatory process within the abdomen. No finding to explain patient's symptoms. Dictated by: Wiliam Coronado M.D. on 01/07/2019 at 15:23 Approved by: Wiliam Coronado M.D. on 01/07/2019 at 15:25 Abdominal x-ray: Radiologist's impression: [facility] Diagn[facility] DATE TYPE STATUS AUTHOR Adry 01/07/19 14:40 Wiliam Coronado 01/07/19 14:40 Joseph McfaddendidiLa Paz N 23, 1995 REG ER, ED.LOC - Main ED: R06 162.56cm 87.09kg BMI: 33.0kg/m? Abdominal Pain Search Chart No Data to Display ONSET Today 12:49 La Joseph N 23 F [address] [address] XRay Report Signed Patient: La Joseph [facility]#: [id number] : 1995Acct:[id number] Age/Sex: 23 / FDate of Service: 01/07/19 Loc: ED Accession Number: [id number] Procedure: XR acute abdomen series Ordering Provider: Eva Ashley P.A-C PROCEDURE: XR ACUTE ABDOMEN SERIES INDICATIONS: pain, constipation TECHNIQUE: One view chest and two views of the abdomen were acquired. COMPARISON: None. FINDINGS: Surgical changes and devices: Clips within the right upper quadrant are present, compatible with a prior cholecystectomy. Chest: Lungs are clear. Heart size is normal. No pleural effusions. No pneumoperitoneum. Abdomen: Bowel gas pattern is normal. No suspicious calcifications. Visualized solid organ contours appear normal. Bones: No suspicious bony lesions. IMPRESSION: 1. No bowel obstruction. 2. No acute cardiopulmonary process. Dictated by: Cr Mcfadden M.D. on 01/07/2019 at 15:38 Approved by: rC Mcfadden M.D. on 01/07/2019 at 15:40 <Doreen Wallis DO - Last Filed: 01/08/19 08:54> Lab Data Lab Results 01/07/19 01/07/19 01/07/19 Range/Units 13:19 13:19 13:19 WBC 6.2 (4.5-11.0) X10^3/uL RBC 4.28 (4.0-5.2) X10^6/uL Hgb 13.0 (12.0-16.0) g/dL Hct 38.1 (36-46) % MCV 89.1 (80-100) fL MCH 30.5 (26-34) PG MCHC 34.2 (30-36) % RDW 12.9 (11.6-14.8) % Plt Count 179 (150-400) X10^3/uL Neut % (Auto) 54.9 (50-75) % Lymph % (Auto) 27.7 (25-40) % [place] % (Auto) 14.7 H (3-14) % Eos % (Auto) 1.8 L (2-4) % Baso % (Auto) 0.9 (0-2) % Neut # (Auto) 3400 (4581-3298) /uL Lymph # (Auto) 1700 (8138-5376) /uL [place] # (Auto) 900 (0-900) /uL Eos # (Auto) 100 (0-450) /uL Baso # (Auto) 100 (0-100) /uL PT 12.4 (10.1-12.7) SECONDS INR 1.1 (0.9-1.3) APTT 33 (26.4-36.2) SECONDS Sodium 138 (137-145) mmol/L Potassium 4.4 (3.4-5.1) mmol/L Chloride 103 (98-107) mmol/L Carbon Dioxide 27 (22-32) mmol/L BUN 14 (7-17) mg/dL Creatinine 0.70 (0.52-1.04) mg/dL Estimated GFR > 60.0 (>60) mL/min BUN/Creatinine Ratio 20.0 (6-22) Glucose 114 H (70-100) mg/dL Calcium 9.1 (8.4-10.2) mg/dL Total Bilirubin 0.7 (0.2-1.3) mg/dL AST 29 (14-36) IU/L ALT 42 (9-52) IU/L Alkaline Phosphatase 98 (38-126) U/L Total Protein 7.5 (6.3-8.2) g/dL Albumin 4.5 (3.5-5.0) g/dL Globulin 3.0 (1.7-4.1) g/dL Albumin/Globulin Ratio 1.5 (1.0-2.8) Lipase 89 (23-300) U/L Point of care testing: Point of Care Testing Rapid Strep A Negative Urine Dip Bedside Urine Glucose Negative Bedside Urine Bilirubin - Negative Bedside Urine Ketone - Negative Urine Specific [place] 1.020 Bedside Urine Occult Blood - Negative Bedside Urine pH 6.0 Bedside Urine Protein - Negative Bedside Urine Urobilinogen +/- 1mg Bedside Urine Nitrite - Negative Bedside Urine Leukocytes - Negative Esterase Discharge Plan Departure Patient Disposition: Home Clinical Impression: Right upper quadrant abdominal pain Pharyngitis Qualifiers: Pharyngitis/tonsillitis etiology: unspecified etiology Qualified Code(s): J02.9 - Acute pharyngitis, unspecified Discharge Date/Time: 01/07/19 16:25 Interventions: ED Discharge Assessment Last Done: 01/07/19 16:25 Instructions: DI for Pharyngitis/Tonsillopharyngitis -- Adult, DI for Abdominal Pain-Adult Activity Restrictions/Additional Instructions: As we talked about, you should return if you have any acutely worsening symptoms over the weekend, i.e. difficulty breathing or swallowing, acutely worsening abdominal pain, protracted vomiting, or high fever. As far as your sore throat and earache, I suspect that these may be a virus since you just traveled and had a sick relative, however the azithromycin that you have already been taking would cover for many bacterial infections including strep throat. Please take [id number]-cyubmuz pain medicine and lozenges, such as cepacol as needed, and follow up with your PCP if this is not getting better over the next week. As far as your abdominal pain, on your exam today it is consistent with the history you give, most focused in your right upper abdomen. Your studies and lab work do not show any acute problem today, however I do think that if this persists, you need further evaluation and testing, probably with a GI specialist if you are not improving soon. There are specialist in [place], and also there is a group ([facility]) who have GI specialists come to [place] (I recommend Dr. Anthony Lopez if he is still seeing patients here). Please restart your Zantac (Ranitidine) and take it every day, either 300 mg once daily or 150 mg twice daily. Try taking Tylenol consistently for pain if that is what usually use. You may wish to use Tylenol arthritis Strength or 8 hour (650 mg per pill, 1 every 8 hours), which may be here to keep up with. Prescriptions: No Action ranitidine HCl [Zantac 75] 75 mg tablet 75 mg PO BID PRN (Reason: Acid Reflux) RF: 0 prenat.vits,reinaldo,mku-igkp-sttbs tablet 1 tab PO DAILY RF: 0 azithromycin 250 mg tablet 250 mg PO DAILY RF: 0 diphenhydramine HCl [Benadryl] 25 mg Capsule 25 mg PO BEDTIME PRN (Reason: Sleep) RF: 0 Referrals: Nuria Dorsey MD [Primary Care Provider] - <Doreen Botnick, DO - Last Filed: 01/08/19 08:54> Cosign ED Attending Cosignature Attestation: I was immediately available in the department for consultation. Documentation has been reviewed. I agree with assessment and plan.
--- NOTE | 2019-01-07 14:40 | DI.RAD.S_ITS ---
PROCEDURE: XR ACUTE ABDOMEN SERIES INDICATIONS: pain, constipation TECHNIQUE: One view chest and two views of the abdomen were acquired. COMPARISON: None. FINDINGS: Surgical changes and devices: Clips within the right upper quadrant are present, compatible with a prior cholecystectomy. Chest: Lungs are clear. Heart size is normal. No pleural effusions. No pneumoperitoneum. Abdomen: Bowel gas pattern is normal. No suspicious calcifications. Visualized solid organ contours appear normal. Bones: No suspicious bony lesions. IMPRESSION: 1. No bowel obstruction. 2. No acute cardiopulmonary process. Dictated by: Cr Mcfadden M.D. on 01/07/2019 at 15:38 Approved by: Cr Mcfadden M.D. on 01/07/2019 at 15:40
--- NOTE | 2019-01-07 14:40 | DI.US.S_ITS ---
PROCEDURE: US ABDOMEN COMPLETE INDICATIONS: RIGHT UPPER QUADRANT/EPIGASTRIC PAIN; S/P CHAVEZ TECHNIQUE: Real-time scanning was performed of the abdominal and retroperitoneal organs, with image documentation. COMPARISON: None. FINDINGS: Liver: Liver is normal in size and homogeneous in echotexture. Gallbladder: Gallbladder is surgically absent. Biliary ducts: Intrahepatic bile ducts are non-dilated. Extrahepatic bile duct caliber measures 4.9 mm. Normal is 6-7 mm or less in diameter, or 10 mm or less post-cholecystectomy. Pancreas: Visualized portions of the pancreas are sonographically normal. Spleen: Spleen is normal in size and homogeneous in echotexture. Kidneys: Kidneys are normal in size and echotexture. Right kidney measures 11 cm long; left kidney measures 10.5 cm long. No hydronephrosis or nephrolithiasis. No solid masses. Aorta: Visualized aorta is normal in caliber at less than 3 cm. Iliacs: Proximal common iliac arteries are normal in caliber at less than 2.5 cm. IVC: Intrahepatic inferior vena cava is patent. Miscellaneous: No free abdominal fluid. IMPRESSION: No acute inflammatory process within the abdomen. No finding to explain patient's symptoms. Dictated by: Wiliam Coronado M.D. on 01/07/2019 at 15:23 Approved by: Wiliam Coronado M.D. on 01/07/2019 at 15:25
--- NOTE | 2019-01-07 14:54 | ED_ITS ---
HPI - Abdominal Pain <Eva Ashley PA-C - Last Filed: 01/07/19 20:31> General Chief Complaint: Abdominal Pain Stated Complaint: abdominal pain Time Seen by Provider: 01/07/19 14:24 Source: patient Mode of arrival: ambulatory Limitations: no limitations History of Present Illness HPI narrative: This is 23-year-old female is sent to ED secondary to 2 week history of abdominal pain, which she initially thought was pain (9 weeks , states all was well at her last visit). She states that she was seen at her PCP office today for this and are felt further workup was needed so sent here. She states that the pain started as more crampy pelvic pain, mild, radiating up further into the abdomen. She states that this gradually moved up into the right lower quadrant more than upper areas, under the ribs. She states that pain is worse with trying to eat any type of food. She states that she has not had any vomiting but has had some nausea with this. She has had some diarrhea but also feels like she has to strain and is constipated at times. She does have a history of IBS but no recent symptoms. She states that she does have a history of acid reflux and multiple gastric and intestinal ulcers. She takes Zantac for this as needed, mainly gets reflux at night. She states that abdominal pain is not very persistent time parker, tends to be worse at night and in the morning. She states that she has had some fever intermittently, high as 99.8, 99.5 last night. She was seen at an urgent care for this 8 days ago and no further workup done at that point. She denies any new chest pain, dyspnea, pain or swelling in her extremities. She also comp lains of history of right earache, sore throat, and swollen glands that started 4 days ago. She states that she has not had cough or other respiratory symptoms with this but she was exposed to a relative who had upper respiratory infection. She notes that she was also seen at urgent care last Thursday and prescribed a Z- Stef for impetigo, which she will finish today. She states that today, it is p ainful to push on the right side of her abdomen but does not feel like pain is severe otherwise, has waxed and waned in severity. She states this is ?belly button up?. 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 Related Data Home Medications Medication Instructions Recorded Confirmed ranitidine 75 mg tablet 75 mg PO BID PRN 12/02/17 01/07/19 azithromycin 250 mg PO DAILY 01/07/19 01/07/19 diphenhydramine HCl [Benadryl] 25 mg PO BEDTIME PRN 01/07/19 01/07/19 1 tab PO DAILY 01/07/19 01/07/19 vitamin,calcium,ywwzcamu-qqkc-sfbey acid tablet Allergies Allergy/AdvReac Type Severity Reaction Status Date / Time No Known Drug Allergies Allergy Verified 01/07/19 12:49 Review of Systems <Eva Ashley PA-C - Last Filed: 01/07/19 20:31> Review of Systems ROS Unobtainable: All systems reviewed & are unremarkable except as noted in HPI and below PFSH <Eva Ashley PA-C - Last Filed: 01/07/19 20:31> Medical History (Updated 01/07/19 @ 16:17 by Eva Ashley PA-C) History of gastric ulcer (Chronic) Situational anxiety (Chronic) Irritable bowel syndrome (Chronic) Surgical History (Updated 01/07/19 @ 14:52 by Eva Ashley PA-C) Status post cholecystectomy (Resolved) Family History (Updated 12/04/17 @ 17:07 by Nuria Dorsey MD) Grandfather Diabetes mellitus Heart disease Father Cancer Social History Smoking Status: Never smoker second hand exposure: No substance use type: does not use Family History (Updated 12/04/17 @ 17:07 by Nuria Dorsey MD) Grandfather Diabetes mellitus Heart disease Father Cancer Social History Smoking Status: Never smoker second hand exposure: No substance use type: does not use Exam <Eva Ashley PA-C - Last Filed: 01/07/19 20:31> Narrative Exam Narrative: GENERAL APPEARANCE: Patient sitting comfortably, in no distress. HEENT: PERRL, EOMI, no scleral icterus, conjunctivae pink. TMs are intact with normal light reflexes, throat mild erythema, no exudate. NECK: Supple shotty tender anterior nodes, more on the right, no posterior nodes LUNGS: Clear to auscultation bilaterally. HEART: Rate and rhythm regular, normal S1 and S2, no S3 or S4. ABDOMEN: Soft, nondistended, bowel sounds present x 4 quadrants, no masses palpable, no hepatosplenomegaly. Moderate tenderness throughout the abdomen, exquisitely tender over the right upper quadrant with positive Martino sign EXTREMITIES: No edema, no calf tenderness DERMATOLOGIC: No jaundice or exanthem NEUROLOGIC: Alert and oriented with normal speech and coordination Initial Vital Signs Initial Vital Signs: Vital Signs Temperature 98.5 F 01/07/19 12:49 Pulse Rate 99 H 01/07/19 12:49 Respiratory Rate 16 01/07/19 12:49 Blood Pressure 124/66 01/07/19 12:49 Pulse Oximetry 97 01/07/19 12:49 <Doreen Wallis DO - Last Filed: 01/08/19 08:54> Initial Vital Signs Initial Vital Signs: Vital Signs Temperature 98.5 F 01/07/19 12:49 Pulse Rate 99 H 01/07/19 12:49 Respiratory Rate 16 01/07/19 12:49 Blood Pressure 124/66 01/07/19 12:49 Pulse Oximetry 97 01/07/19 12:49 Course <Eva Ashley PA-C - Last Filed: 01/07/19 20:31> Additional Information: Patient does not appear acutely worse today, has had pain for a couple of weeks, mainly right upper quadrant on exam. She also has upper respiratory infection, likely viral given recent exposures and travel. Advised monitoring, restarting ranitidine routinely, and follow up with PCP early next week to talk about further workup/GI referral. She is agreeable with this plan as well as to return if any acutely worsening or new symptoms in the interim Orders Ordered: Discontinued Medications Lidocaine HCl (Viscous Lidocaine 2%) 15 ml PO NOW ONE Stop: 01/07/19 14:41 Last Admin: 01/07/19 15:31 Dose: 15 ml Vital Signs - 8 hr 01/07/19 12:49 01/07/19 14:20 01/07/19 16:21 Temperature 98.5 F Pulse Rate 99 H 101 H 94 H Respiratory Rate 16 16 16 Blood Pressure 124/66 Blood Pressure [Right Arm] 116/74 124/61 Pulse Oximetry 97 99 99 01/07/19 16:25 Temperature Pulse Rate 98 H Respiratory Rate Blood Pressure 116/82 Blood Pressure [Right Arm] Pulse Oximetry 99 <Doreen Wallis DO - Last Filed: 01/08/19 08:54> Orders Ordered: Discontinued Medications Lidocaine HCl (Viscous Lidocaine 2%) 15 ml PO NOW ONE Stop: 01/07/19 14:41 Last Admin: 01/07/19 15:31 Dose: 15 ml Vital Signs - 8 hr 01/07/19 12:49 01/07/19 14:20 01/07/19 16:21 Temperature 98.5 F Pulse Rate 99 H 101 H 94 H Respiratory Rate 16 16 16 Blood Pressure 124/66 Blood Pressure [Right Arm] 116/74 124/61 Pulse Oximetry 97 99 99 01/07/19 16:25 Temperature Pulse Rate 98 H Respiratory Rate Blood Pressure 116/82 Blood Pressure [Right Arm] Pulse Oximetry 99 MDM - Abdominal Pain <Eva Ashley PA-C - Last Filed: 01/07/19 20:31> Lab Data Attestation: I reviewed the patient's lab results. Result diagrams: 01/07/19 13:19 01/07/19 13:19 Lab Results 01/07/19 01/07/19 01/07/19 Range/Units 13:19 13:19 13:19 WBC 6.2 (4.5-11.0) X10^3/uL RBC 4.28 (4.0-5.2) X10^6/uL Hgb 13.0 (12.0-16.0) g/dL Hct 38.1 (36-46) % MCV 89.1 (80-100) fL MCH 30.5 (26-34) PG MCHC 34.2 (30-36) % RDW 12.9 (11.6-14.8) % Plt Count 179 (150-400) X10^3/uL Neut % (Auto) 54.9 (50-75) % Lymph % (Auto) 27.7 (25-40) % Petroleum % (Auto) 14.7 H (3-14) % Eos % (Auto) 1.8 L (2-4) % Baso % (Auto) 0.9 (0-2) % Neut # (Auto) 3400 (2679-6436) /uL Lymph # (Auto) 1700 (7726-8854) /uL Petroleum # (Auto) 900 (0-900) /uL Eos # (Auto) 100 (0-450) /uL Baso # (Auto) 100 (0-100) /uL PT 12.4 (10.1-12.7) SECONDS INR 1.1 (0.9-1.3) APTT 33 (26.4-36.2) SECONDS Sodium 138 (137-145) mmol/L Potassium 4.4 (3.4-5.1) mmol/L Chloride 103 (98-107) mmol/L Carbon Dioxide 27 (22-32) mmol/L BUN 14 (7-17) mg/dL Creatinine 0.70 (0.52-1.04) mg/dL Estimated GFR > 60.0 (>60) mL/min BUN/Creatinine Ratio 20.0 (6-22) Glucose 114 H (70-100) mg/dL Calcium 9.1 (8.4-10.2) mg/dL Total Bilirubin 0.7 (0.2-1.3) mg/dL AST 29 (14-36) IU/L ALT 42 (9-52) IU/L Alkaline Phosphatase 98 (38-126) U/L Total Protein 7.5 (6.3-8.2) g/dL Albumin 4.5 (3.5-5.0) g/dL Globulin 3.0 (1.7-4.1) g/dL Albumin/Globulin Ratio 1.5 (1.0-2.8) Lipase 89 (23-300) U/L Point of care testing: Point of Care Testing Rapid Strep A Negative Urine Dip Bedside Urine Glucose Negative Bedside Urine Bilirubin - Negative Bedside Urine Ketone - Negative Urine Specific [place] 1.020 Bedside Urine Occult Blood - Negative Bedside Urine pH 6.0 Bedside Urine Protein - Negative Bedside Urine Urobilinogen +/- 1mg Bedside Urine Nitrite - Negative Bedside Urine Leukocytes - Negative Esterase Imaging Data US - abdomen: Radiologist's impression: 24 Eva Ashley PA-C Find Patient Imaging La Joseph N 23 F 1995 ACTIVITY DATE EXAM STATUS AUTHOR 01/07/19 14:40 Signed Wiliam Coronado 01/07/19 14:40 Signed Lesa,[address] [address] Ultrasound Report Signed Patient: La Joseph [facility]#: [id number] : 1995Acct:[id number] Age/Sex: 23 / FDate of Service: 01/07/19 Loc: ED Accession Number: [id number] Procedure: US abdomen complete Ordering Provider: Eva Ashley P.A-C PROCEDURE: US ABDOMEN COMPLETE INDICATIONS: RIGHT UPPER QUADRANT/EPIGASTRIC PAIN; S/P CHAVEZ TECHNIQUE: Real-time scanning was performed of the abdominal and retroperitoneal organs, with image documentation. COMPARISON: None. FINDINGS: Liver: Liver is normal in size and homogeneous in echotexture. Gallbladder: Gallbladder is surgically absent. Biliary ducts: Intrahepatic bile ducts are non-dilated. Extrahepatic bile duct caliber measures 4.9 mm. Normal is 6-7 mm or less in diameter, or 10 mm or less post-cholecystectomy. Pancreas: Visualized portions of the pancreas are sonographically normal. Spleen: Spleen is normal in size and homogeneous in echotexture. Kidneys: Kidneys are normal in size and echotexture. Right kidney measures 11 cm long; left kidney measures 10.5 cm long. No hydronephrosis or nephrolithiasis. No solid masses. Aorta: Visualized aorta is normal in caliber at less than 3 cm. Iliacs: Proximal common iliac arteries are normal in caliber at less than 2.5 cm. IVC: Intrahepatic inferior vena cava is patent. Miscellaneous: No free abdominal fluid. IMPRESSION: No acute inflammatory process within the abdomen. No finding to explain patient's symptoms. Dictated by: Wiliam Coronado M.D. on 01/07/2019 at 15:23 Approved by: Wiliam Coronado M.D. on 01/07/2019 at 15:25 Abdominal x-ray: Radiologist's impression: [facility] Diagn[facility] DATE TYPE STATUS AUTHOR Adry 01/07/19 14:40 Wiliam Coronado 01/07/19 14:40 Cr Mcfadden Tara N 23, 1995 REG ER, ED.LOC - Main ED: R06 162.56cm 87.09kg BMI: 33.0kg/m? Abdominal Pain Search Chart No Data to Display ONSET Today 12:49 La Joseph N 23 F [address] [address] XRay Report Signed Patient: La Joseph [facility]#: [id number] : 1995Acct:[id number] Age/Sex: 23 / FDate of Service: 01/07/19 Loc: ED Accession Number: [id number] Procedure: XR acute abdomen series Ordering Provider: Eva Ashley P.A-C PROCEDURE: XR ACUTE ABDOMEN SERIES INDICATIONS: pain, constipation TECHNIQUE: One view chest and two views of the abdomen were acquired. COMPARISON: None. FINDINGS: Surgical changes and devices: Clips within the right upper quadrant are present, compatible with a prior cholecystectomy. Chest: Lungs are clear. Heart size is normal. No pleural effusions. No pneumoperitoneum. Abdomen: Bowel gas pattern is normal. No suspicious calcifications. Visualized solid organ contours appear normal. Bones: No suspicious bony lesions. IMPRESSION: 1. No bowel obstruction. 2. No acute cardiopulmonary process. Dictated by: Cr Mcfadden M.D. on 01/07/2019 at 15:38 Approved by: Cr Mcfadden M.D. on 01/07/2019 at 15:40 <Doreen Wallis DO - Last Filed: 01/08/19 08:54> Lab Data Lab Results 01/07/19 01/07/19 01/07/19 Range/Units 13:19 13:19 13:19 WBC 6.2 (4.5-11.0) X10^3/uL RBC 4.28 (4.0-5.2) X10^6/uL Hgb 13.0 (12.0-16.0) g/dL Hct 38.1 (36-46) % MCV 89.1 (80-100) fL MCH 30.5 (26-34) PG MCHC 34.2 (30-36) % RDW 12.9 (11.6-14.8) % Plt Count 179 (150-400) X10^3/uL Neut % (Auto) 54.9 (50-75) % Lymph % (Auto) 27.7 (25-40) % Petroleum % (Auto) 14.7 H (3-14) % Eos % (Auto) 1.8 L (2-4) % Baso % (Auto) 0.9 (0-2) % Neut # (Auto) 3400 (5367-9742) /uL Lymph # (Auto) 1700 (3599-4511) /uL Petroleum # (Auto) 900 (0-900) /uL Eos # (Auto) 100 (0-450) /uL Baso # (Auto) 100 (0-100) /uL PT 12.4 (10.1-12.7) SECONDS INR 1.1 (0.9-1.3) APTT 33 (26.4-36.2) SECONDS Sodium 138 (137-145) mmol/L Potassium 4.4 (3.4-5.1) mmol/L Chloride 103 (98-107) mmol/L Carbon Dioxide 27 (22-32) mmol/L BUN 14 (7-17) mg/dL Creatinine 0.70 (0.52-1.04) mg/dL Estimated GFR > 60.0 (>60) mL/min BUN/Creatinine Ratio 20.0 (6-22) Glucose 114 H (70-100) mg/dL Calcium 9.1 (8.4-10.2) mg/dL Total Bilirubin 0.7 (0.2-1.3) mg/dL AST 29 (14-36) IU/L ALT 42 (9-52) IU/L Alkaline Phosphatase 98 (38-126) U/L Total Protein 7.5 (6.3-8.2) g/dL Albumin 4.5 (3.5-5.0) g/dL Globulin 3.0 (1.7-4.1) g/dL Albumin/Globulin Ratio 1.5 (1.0-2.8) Lipase 89 (23-300) U/L Point of care testing: Point of Care Testing Rapid Strep A Negative Urine Dip Bedside Urine Glucose Negative Bedside Urine Bilirubin - Negative Bedside Urine Ketone - Negative Urine Specific [place] 1.020 Bedside Urine Occult Blood - Negative Bedside Urine pH 6.0 Bedside Urine Protein - Negative Bedside Urine Urobilinogen +/- 1mg Bedside Urine Nitrite - Negative Bedside Urine Leukocytes - Negative Esterase Discharge Plan Departure Patient Disposition: Home Clinical Impression: Right upper quadrant abdominal pain Pharyngitis Qualifiers: Pharyngitis/tonsillitis etiology: unspecified etiology Qualified Code(s): J02.9 - Acute pharyngitis, unspecified Discharge Date/Time: 01/07/19 16:25 Interventions: ED Discharge Assessment Last Done: 01/07/19 16:25 Instructions: DI for Pharyngitis/Tonsillopharyngitis -- Adult, DI for Abdominal Pain-Adult Activity Restrictions/Additional Instructions: As we talked about, you should return if you have any acutely worsening symptoms over the weekend, i.e. difficulty breathing or swallowing, acutely worsening abdominal pain, protracted vomiting, or high fever. As far as your sore throat and earache, I suspect that these may be a virus since you just traveled and had a sick relative, however the azithromycin that you have already been taking would cover for many bacterial infections including strep throat. Please take xeid-xqo-eyhtfav pain medicine and lozenges, such as cepacol as needed, and follow up with your PCP if this is not getting better over the next week. As far as your abdominal pain, on your exam today it is consistent with the history you give, most focused in your right upper abdomen. Your studies and lab work do not show any acute problem today, however I do think that if this persists, you need further evaluation and testing, probably with a GI specialist if you are not improving soon. There are specialist in [place], and also there is a group ([facility]) who have GI specialists come to [place] (I recommend Dr. Anthony Lopez if he is still seeing patients here). Please restart your Zantac (Ranitidine) and take it every day, either 300 mg once daily or 150 mg twice daily. Try taking Tylenol consistently for pain if that is what usually use. You may wish to use Tylenol arthritis Strength or 8 hour (650 mg per pill, 1 every 8 hours), which may be here to keep up with. Prescriptions: No Action ranitidine HCl [Zantac 75] 75 mg tablet 75 mg PO BID PRN (Reason: Acid Reflux) RF: 0 prenat.vits,reinaldo,gru-gfrc-roknb tablet 1 tab PO DAILY RF: 0 azithromycin 250 mg tablet 250 mg PO DAILY RF: 0 diphenhydramine HCl [Benadryl] 25 mg Capsule 25 mg PO BEDTIME PRN (Reason: Sleep) RF: 0 Referrals: Nuria Dorsey MD [Primary Care Provider] - <Doreen Wallis DO - Last Filed: 01/08/19 08:54> Cosign ED Attending Cosignature Attestation: I was immediately available in the department for consultation. Documentation has been reviewed. I agree with assessment and plan.
[2019-01-07] MEDS: LIDOCAINE VISCOUS 2% 15 ML SOLUTION PO (15:31)
[2019-01-07 16:21] VITALS: BP 124/61; PULSE 94; RESP 16; O2SAT 99
[2019-01-07 16:25] VITALS: BP 116/82; PULSE 98; O2SAT 99
== END 2019-01-07 16:25 | disposition home or self-care (01) ==
PROVIDERS: Emergency Medicine; Emergency Provider Internal Medicine; PCP Family Medicine
DX: R10.11 Right upper quadrant pain (principal); J02.9 Acute pharyngitis, unspecified
CPT/HCPCS: 36415; 74022; 76700; 80053; 81003; 83690; 85025; 85610; 85730; 87880; 93005; 99283; 99284

== ENCOUNTER → 2019-03-17 09:50 | Outpatient (CLI) | payer OTHER, SELFPAY ==
--- NOTE | 2019-03-17 09:53 | DI.CT.S_ITS ---
PROCEDURE: CT HEAD/BRAIN WO CON INDICATIONS: new onset headaches TECHNIQUE: Noncontrast 4.5 mm thick angled axial sections acquired from the foramen magnum to the vertex, with coronal and sagittal reformats. For radiation dose reduction, the following was used: automated exposure control, adjustment of mA and/or kV according to patient size. COMPARISON: None. FINDINGS: Image quality: Excellent. CSF spaces: Basal cisterns are patent. No extra-axial fluid collections. Ventricles are normal in size and shape. Brain: No midline shift. No intracranial masses or hemorrhage. Flores-white matter interface is normal. Skull and face: Calvarium and visualized facial bones are intact, without suspicious lesions. Sinuses: Visualized sinuses and mastoids are clear. 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 IMPRESSION: Unremarkable intracranial study, without an imaging explanation found for the patient's presenting history of headache. Dictated by: Rowdy Kenney M.D. on 03/17/2019 at 9:16 Approved by: Rowdy Kenney M.D. on 03/17/2019 at 9:17
== END ==
PROVIDERS: PCP Family Medicine; Visit Provider Family Medicine
DX: R51 Headache (principal)
CPT/HCPCS: 70450

== ENCOUNTER 2019-05-13 22:03 | Emergency (ER) | payer OTHER, SELFPAY ==
[2019-05-13 22:21] VITALS: BP 130/80; PULSE 88; RESP 20; TEMP 36.5; O2SAT 98
--- NOTE | 2019-05-14 00:11 | ED.EYEPROB ---
HPI - Eye Problem General Chief complaint: Eye Problems Stated complaint: BLURR VISION RIGHT EYE PAIN Time Seen by Provider: 05/13/19 23:16 Source: patient Mode of arrival: Ambulatory Limitations: no limitations History of Present Illness HPI Narrative: Patient is a 23-year-old female who presents right eye pain. It has been ongoing for about a week. She actually was treated with prednisone and a Z-Stef initially for what was thought to be sinus infection and bilateral eye pain. However right eye has continued to hurt. She says that she sees like spots and it is blurry she denies any blackening her lack of vision. No drainage from her eye no foreign body sensation in her eye. She has not had any fevers or chills. MD chief complaint: eye pain Related Data Home Medications Medication Instructions Recorded Confirmed ranitidine HCl 75 mg tablet 75 mg PO BID PRN 12/02/17 03/29/19 diphenhydramine HCl [Benadryl] 25 mg PO BEDTIME PRN 01/07/19 03/29/19 prenat.vits,reinaldo,dvf-uyvf-ljukn 1 tab PO DAILY 01/07/19 03/29/19 Previous Rx's Medication Instructions Recorded sumatriptan 5 mg/actuation nasal 5 mg NASAL ONCE PRN #1 each 03/09/19 spray propranolol 20 mg tablet 20 mg PO BID #60 tab 03/17/19 Allergies Allergy/AdvReac Type Severity Reaction Status Date / Time No Known Drug Allergies Allergy Verified 03/29/19 08:35 Review of Systems Review of Systems Narrative: GENERAL: Denies chills,fever HEENT: See HPI Denies throat pain RESPIRATORY: Denies dyspnea, cough, wheezing CARDIOVASCULAR: Denies chest pain, palpitations GASTROINTESTINAL: Denies nausea, vomiting MUSCULOSKELETAL: Denies extremity pain, injury SKIN: No rash, no laceration, no pruritus NEUROLOGIC: Denies weakness, dizziness, headache, numbness 8 point review of systems is negative except for those stated above and HPI Patient History Medical History Headache (Acute) History of gastric ulcer (Chronic) Irritable bowel syndrome (Chronic) Situational anxiety (Chronic) Surgical History Status post cholecystectomy (Resolved) Family History Grandfather Diabetes mellitus Heart disease Father Cancer Social History Smoking Status: Never smoker second hand exposure: No substance use type: does not use alcohol intake frequency: holidays/special occasions only Substance Use Type: does not use Exam Initial Vital Signs Initial Vital Signs: Vital Signs Temperature 97.7 F 05/13/19 22:21 Pulse Rate 88 05/13/19 22:21 Respiratory Rate 20 05/13/19 22:21 Blood Pressure 130/80 05/13/19 22:21 Pulse Oximetry 98 05/13/19 22:21 GENERAL: Well-appearing, well-nourished and in no acute distress. HEENT: Head atraumatic,EOMI, pupils reactive, face symmetric, moist mucous membranes EARS: Tympanic membranes visualized, no erythema or bulging, no hemotympanum EYE: EOMI, eyelid fever did for exam no abnormality found. No erythema no gross discharge no pain periorbital Right eye was treated with proparacaine, stained with fluorescein. No dye uptake. No foreign body. Pressure in right eye is 23 mmHg CARDIOVASCULAR: Regular rate and rhythm without murmurs, rubs or gallops. RESPIRATORY: Breath sounds equal bilaterally, no wheezes rales or rhonchi. EXTREMITIES: Normal range of motion, no clubbing or edema. Neurovascularly intact NEUROLOGICAL: Alert and oriented x4.Normal gait and speech. SKIN: Warm, dry, no laceration, no petechiae, no rashes or lesions. Course Orders Ordered: Discontinued Medications Ketorolac Tromethamine (Toradol) 30 mg IM NOW ONE Stop: 05/14/19 00:37 Last Admin: 05/14/19 00:47 Dose: 30 mg Documented by: MCKENZIE Proparacaine HCl (Parcaine 0.5% Ophth Rossana) 1 drops EYE-RIGHT NOW ONE Stop: 05/14/19 00:14 Last Admin: 05/14/19 00:48 Dose: 1 drop Documented by: MCKENZIE Vital Signs Vital signs: Vital Signs - 8 hr 05/14/19 00:54 Temperature 98.5 F Pulse Rate 90 Respiratory Rate 16 Blood Pressure [Right Arm] 117/84 Pulse Oximetry 98 MDM - Eye Problem MDM Narrative Medical decision making narrative: Patient has no loss of vision. She has been having pain ongoing for a week. At this time it is only the right side she has no sign of orbital cellulitis she is afebrile actually the eye itself overall appears healthy. Patient has been sleeping off and on while in the emergency department. She is given a shot of Toradol. Possible ocular migraine. Discharge Plan Departure Patient Disposition: Home Clinical Impression: Ocular migraine Discharge Date/Time: 05/14/19 01:00 Instructions: DI for Eye Pain Activity Restrictions/Additional Instructions: *You have been diagnosed with ocular migraines *What to do: Recommend that you get followed up with Ophthalmology. At this time no indication for any antibiotic *Continue to take medications as directed Ibuprofen 800 mg every 8 hours with food if needed for pain *Follow up with your primary care provider in 2-3 days *Return to ER if you should have increasing redness, drainage from I increasing pain or any new, worsening or concerning symptoms Prescriptions: No Action sumatriptan 5 mg/actuation spray,non-aerosol 5 mg NASAL ONCE PRN (Reason: migraine headache) Qty: 1 RF: 0 propranolol 20 mg tablet 20 mg PO BID Qty: 60 RF: 5 ranitidine HCl [Zantac 75] 75 mg tablet 75 mg PO BID PRN (Reason: Acid Reflux) RF: 0 prenat.vits,reinaldo,ocr-mcsg-mdtmk tablet 1 tab PO DAILY RF: 0 diphenhydramine HCl [Benadryl] 25 mg Capsule 25 mg PO BEDTIME PRN (Reason: Sleep) RF: 0 Referrals: Moe Huitron MD [Physician] - Adriane Arauz MD [Physician] - Julio Cesar Arizmendi MD [Physician] - Nuria Dorsey MD [Primary Care Provider] -
[2019-05-14] MEDS: KETOROLAC 60 MG/2 ML VIAL 30 MG IM (00:47)
[2019-05-14] MEDS: PROPARACAINE 0.5% OPHTH SOL 1 DROPS EYE-RIGHT (00:48)
[2019-05-14 00:54] VITALS: BP 117/84; PULSE 90; RESP 16; TEMP 36.9; O2SAT 98
== END 2019-05-14 01:00 | disposition home or self-care (01) ==
PROVIDERS: Emergency Provider Emergency Medicine; PCP Family Medicine
DX: G43.109 Migraine with aura, not intractable, without status migrainosus (principal)
CPT/HCPCS: 96372; 99283; J1885

== ENCOUNTER → 2019-05-24 11:29 | Outpatient (CLI) | payer OTHER, SELFPAY ==
[2019-05-24 12:44] LABS: Albumin 4.5 g/dL (3.5-5.0); BUN Creatinine Ratio 18.6 (6-22); Blood Urea Nitrogen 13 mg/dL (7-17); Calcium 9.5 mg/dL (8.4-10.2); Carbon Dioxide 24 mmol/L (22-32); Chloride 103 mmol/L (98-107); Estimated Glomerular Filt Rate > 60.0 mL/min (>60); Glucose 137 mg/dL (70-100); HEMOLYSIS < 15 (0-50); Phosphorous 3.4 mg/dL (2.5-4.5); Potassium 4.1 mmol/L (3.4-5.1); Sodium 139 mmol/L (137-145)
== END ==
PROVIDERS: PCP Family Medicine; Visit Provider Ophthalmology
DX: H46.11 Retrobulbar neuritis, right eye (principal); G35 Multiple sclerosis
CPT/HCPCS: 36415; 80069; 82565; 84520

== ENCOUNTER → 2019-06-08 06:44 | Outpatient (CLI) | payer OTHER, SELFPAY ==
--- NOTE | 2019-06-08 | DI.MRI.S_ITS ---
PROCEDURE: MR HEAD/BRAIN WO/W CON INDICATIONS: Retrobulbar neuritis, right eye TECHNIQUE: Noncontrast axial T1 spin echo, axial T2 fast spin echo, sagittal and axial FLAIR, coronal T2 fast spin echo, axial gradient echo, axial diffusion and ADC through the brain. After the administration of contrast, axial and coronal 3D VIBE or T1 spin echo with fat saturation through the brain. COMPARISON: None. FINDINGS: Image quality: Excellent. CSF Spaces: Basal cisterns are patent. No extra-axial fluid collections. Ventricles are normal in size and shape. Brain: No midline shift. No intracranial bleeds or masses. No abnormal intracranial enhancement. The brainstem appears normal. Diffusion-weighted images demonstrate no acute ischemic insults. No chronic ischemic insults. Normal intravascular flow voids are present. Skull and face: Calvarial marrow is normal in signal. Orbits appear normal. Optic nerves are unremarkable. No suspicious enhancement. The globes are within normal limits Sinuses: Sinuses and mastoids appear clear. IMPRESSION: Normal appearance of the right orbit. No evidence of acute ischemia. No acute intracranial signal abnormality or enhancement. Dictated by: Darell Fischer M.D. on 06/08/2019 at 8:41 Approved by: Darell Fischer M.D. on 06/08/2019 at 8:47
== END ==
PROVIDERS: PCP Family Medicine; Visit Provider Ophthalmology
DX: H46.11 Retrobulbar neuritis, right eye (principal)
CPT/HCPCS: 70553; A9579

== ENCOUNTER → 2019-07-04 07:29 | Outpatient (CLI) | payer OTHER, SELFPAY ==
--- NOTE | 2019-07-04 | DI.MRI.S_ITS ---
PROCEDURE: MR THORACIC SPINE WO/W CON INDICATIONS: Visual disterbances,weakness,fatigue,headache TECHNIQUE: Noncontrast sagittal T1 spin echo and T2 fast spin echo, sagittal STIR, axial T1 and T2 fast spin echo through the thoracic spine. After the administration of contrast, axial and sagittal T1 spin echo with fat saturation through the thoracic spine. COMPARISON: None. FINDINGS: Image quality: Excellent. Alignment and curvature: There is normal bony alignment. Marrow: Marrow is of normal overall signal. No acute vertebral body compression fractures. Spinal cord: Visualized spinal cord is of normal signal and size, without abnormal enhancement. Paraspinous soft tissues: No paravertebral masses or abnormal enhancement. Miscellaneous: Central canal and foramina appear widely patent at all scanned levels. IMPRESSION: Normal for age, source of current symptoms is not seen. No appreciable degenerative disc disease or facet osteoarthritis is found. No intrinsic lesion within the thoracic cord is identified. No spinal or foraminal stenosis is seen. Dictated by: Kevyn Black M.D. on 07/04/2019 at 11:14 Approved by: Kevyn Balck M.D. on 07/04/2019 at 11:15
--- NOTE | 2019-07-04 | DI.MRI.S_ITS ---
PROCEDURE: MR LUMBAR SPINE WO/W CON INDICATIONS: Visual disterbances,weakness,fatigue,headache TECHNIQUE: Noncontrast sagittal T1 spin echo and T2 fast spin echo, sagittal STIR, axial T1 and T2 fast spin echo through the lumbar spine. In cases with scoliosis, additional coronal T2 fast spin echo may be performed. After the administration of contrast, sagittal and axial T1 spin echo with fat saturation through the lumbar spine. COMPARISON: [facility], MR, MR CERVICAL SPINE WO/W CON, 07/04/2019, 7:58. [facility], MR, MR THORACIC SPINE WO/W CON, 07/04/2019, 7:58. FINDINGS: Image quality: Excellent. Alignment and curvature: There is normal bony alignment. Marrow: Marrow is of normal overall signal. No acute vertebral body compression fractures. No suspicious marrow enhancement. Spinal cord: Conus medullaris terminates at the L1 level. Visualized spinal cord demonstrates normal signal, without suspicious enhancement. Paraspinous soft tissues: No paravertebral masses or abnormal enhancement. L1-L2: Normal appearance. L2-L3: Normal appearance. L3-L4: Normal appearance. L4-L5: Normal appearance. L5-S1: Normal appearance. IMPRESSION: Normal examination, no spinal or foraminal stenosis or intrinsic lesion within the visualized lower thoracic cord or lumbosacral spinal canal. Dictated by: Kevyn Black M.D. on 07/04/2019 at 11:19 Approved by: Kevyn Black M.D. on 07/04/2019 at 11:32
--- NOTE | 2019-07-04 | DI.MRI.S_ITS ---
PROCEDURE: MR CERVICAL SPINE WO/W CON INDICATIONS: Visual disterbances,weakness,fatigue,headache TECHNIQUE: Noncontrast sagittal T1 spin echo and T2 fast spin echo, sagittal STIR, sagittal PD fast spin echo, foraminal oblique sagittal T2 fast spin echo, axial gradient echo or T2 fast spin echo through the cervical spine. After the administration of contrast, sagittal and axial T1 spin echo with fat saturation through the cervical spine. COMPARISON: [facility], CT, CT HEAD/BRAIN WO CON, 03/17/2019, 9:54. FINDINGS: Image quality: Excellent. Alignment and curvature: There is normal bony alignment. 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 The C1-C2 articulation appears normal. Marrow: Marrow demonstrates normal overall signal except for presence of a C6 vertebral body area of dense sclerosis, measuring approximately 7 mm in each dimension, without enhancement. This presumably is a benign bone island.. Spinal cord: Visualized spinal cord is normal in size, without white matter lesions. No suspicious intramedullary enhancement. No cerebellar tonsillar herniation. Paraspinous soft tissues: No paravertebral masses or suspicious enhancement. C2-C3: Normal appearance. C3-C4: Normal appearance. C4-C5: Normal appearance. C5-C6: Normal appearance except for the sclerotic focus measuring 7 mm in all dimensions identified within the vertebral body marrow space of C6. C6-C7: Normal appearance. C7-T1: Normal appearance. IMPRESSION: 1. No spinal or foraminal stenosis found. 2. No lesion intrinsic within the cervical or visualized upper thoracic cord is seen. There specifically is no Visualiz MR evidence of underlying multiple sclerosis. No enhancing lesion is found. 3. Incidental finding of sclerotic focus measuring 7 mm in diameter, rounded, within the vertebral body marrow space of C6. No associated enhancement. Benign bone island is the presumed cause. 4. 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 Dictated by: Kevyn Black M.D. on 07/04/2019 at 16:43 Approved by: Kevyn Black M.D. on 07/04/2019 at 16:48
== END ==
PROVIDERS: PCP Family Medicine; Visit Provider Registered Nurse
DX: R51 Headache (principal); H53.9 Unspecified visual disturbance; R53.83 Other fatigue; R53.1 Weakness; Q76.49 Other congenital malformations of spine, not associated with scoliosis
CPT/HCPCS: 72156; 72157; 72158; A9579

== ENCOUNTER → 2019-08-31 12:05 | Outpatient (CLI) | payer OTHER, SELFPAY | PROVIDERS: PCP Family Medicine; Visit Provider Family Medicine | DX: N39.0 Urinary tract infection, site not specified (principal); R30.0 Dysuria | CPT/HCPCS: 87070; 87086; 87205 ==

== ENCOUNTER 2020-06-26 11:13 | Emergency (ER) | payer OTHER, SELFPAY ==
[2020-06-26 11:18] VITALS: BP 121/76; PULSE 68; O2SAT 100
[2020-06-26 11:20] VITALS: BP 121/76; PULSE 70; RESP 22; TEMP 36.7; O2SAT 99; BMI 30.4
--- NOTE | 2020-06-26 11:21 | DI.US.S_ITS ---
PROCEDURE: US PELVIC COMPLETE INDICATIONS: MORNING AFTER PILL YESTERDAY - ABDOMINAL PAIN TECHNIQUE: Real-time scanning was performed of the pelvic organs, with image documentation. Additional endovaginal scanning was necessary due to incomplete visualization of the adnexal and endometrial structures by transabdominal scanning. COMPARISON: None. FINDINGS: Transabdominal scanning: Limited scanning through the kidneys shows no hydronephrosis. No pathologic free abdominal or pelvic fluid. A small amount of free fluid in the cul-de-sac is within physiological limits. Endovaginal scanning: Uterus: Uterus is anteverted measuring 7.5 x 5.9 x 4.5 cm. The endometrium measures 3.6 mm in combined thickness. Ovaries: Right ovary measures 3.5 x 1.5 x 1.7 cm. Left ovary measures 4.1 x 3.1 x 2.6 cm. Multiple ovarian follicles are noted. There is positive blood flow to both ovaries. IMPRESSION: 1. Normal uterus and ovaries. 2. A trace amount of free fluid in the cul-de-sac is likely within physiological limits. Dictated by: Jazzmine Goodson M.D. on 06/26/2020 at 12:25 Approved by: Jazzmine Goodson M.D. on 06/26/2020 at 12:29
[2020-06-26 11:47] LABS: RBC Urine None Seen (0-5/HPF)
[2020-06-26 11:50] LABS: Add Manual Diff / Slide Review NO; Basophils Absolute Auto 100 /uL (0-100); Basophils Percent Auto 1.3 % (0-2); Eosinophils Absolute Auto 100 /uL (0-450); Eosinophils Percent Auto 1.5 % (2-4); Hematocrit 39.9 % (36-46); Hemoglobin 13.4 g/dL (12.0-16.0); Lymphocytes Absolute Auto 2100 /uL (1100-4500); Lymphocytes Percent Auto 44.4 % (25-40); Mean Corpuscular HGB Conc 33.6 % (30-36); Mean Corpuscular Hemoglobin 29.9 PG (26-34); Monocytes Absolute Auto 400 /uL (0-900); Monocytes Percent Auto 8.2 % (3-14); Neutrophils Absolute Auto 2100 /uL (1500-7000); Neutrophils Percent Auto 44.6 % (50-75); Platelet Count 164 X10^3/uL (150-400); Red Blood Cell Count 4.48 X10^6/uL (4.0-5.2); Red Cell Distribution Width 12.7 % (11.6-14.8); White Blood Cell Count 4.6 X10^3/uL (4.5-11.0)
[2020-06-26 12:00] LABS: Alanine Aminotransferase 74 IU/L (<35); Albumin 4.3 g/dL (3.5-5.0); Albumin Globulin Ratio 1.4 (1.0-2.8); Alkaline Phosphatase 75 U/L (38-126); Aspartate Aminotransferase 35 IU/L (14-36); BUN Creatinine Ratio 14.3 (6-22); Bilirubin Total 0.5 mg/dL (0.2-1.3); Blood Urea Nitrogen 10 mg/dL (7-17); Calcium 8.8 mg/dL (8.4-10.2); Carbon Dioxide 27 mmol/L (22-32); Chloride 105 mmol/L (98-107); Estimated Glomerular Filt Rate > 60.0 mL/min (>60); Glucose 96 mg/dL (70-100); HEMOLYSIS < 15 (0-50); Lipase 79 U/L (23-300); Potassium 3.9 mmol/L (3.4-5.1); Sodium 137 mmol/L (137-145); Total Protein 7.3 g/dL (6.3-8.2)
[2020-06-26 12:17] LABS: Amorphous Sediment Urine 1+; Bacteria Urine Moderate (10-30); Culture Indicated Urine Specimen Cultured; Mucus Urine 1+ (Negative); Squamous Epithelial Cell Urine 5-10 /HPF (0-5/HPF); WBC Urine 5-10/HPF (0-5/HPF)
[2020-06-26] MEDS: SODIUM CHLORIDE 0.9% 1,000 ML 1000 ML IV (12:34)
[2020-06-26] MEDS: ONDANSETRON 4 MG/2 ML INJ IV (12:34)
--- NOTE | 2020-06-26 12:56 | ED_ITS ---
HPI - Abdominal Pain <Tracy Harley, CHIEF MEDICAL PHYSICIST-BC - Last Filed: 06/26/20 16:35> General Chief Complaint: Abdominal Pain Stated Complaint: pain in left side and stomach Time Seen by Provider: 06/26/20 11:20 Source: patient Mode of arrival: Ambulatory Limitations: no limitations History of Present Illness HPI narrative: The patient is a 25-year-old female nonsmoker with a significant medical history including Crohn's disease, irritable bowel syndrome, gastric ulcer, and cholecystectomy who presents with a chief complaint of severe left lower quadrant pain this morning. She states that she has had abdominal issues for a long time, with moving pain and was actually doing a telehealth visit with her gastroenterology provider this morning. She does note that her last menstrual cycle was at least 2 months ago, but she has been changing controls from a an IUD to pills. She states she has a history of elevated liver enzymes and is being worked up for porphyria. She states that she has had some flank pain off and on for the past several weeks, has had some urinary symptoms, but nothing specific. She states that she has had multiple pelvic ultrasounds and abdominal ultrasounds and they have never found anything. She states that her cosmetic sales assistant is working on setting up a camera for her to swallow. She does note that she took the morning after pill yesterday morning. She did this because she had intercourse, but has not had a menstrual cycle in several months. She does note that the pain has decreased during her stay this morning. She states that the pain in her left lower quadrant was sudden onset this morning. Related Data Home Medications Medication Instructions Recorded Confirmed diphenhydramine HCl [Benadryl] 25 mg PO BEDTIME PRN 01/07/19 06/01/20 dicyclomine 10 mg capsule 10 mg PO BID 06/01/20 06/01/20 famotidine PO 06/01/20 06/01/20 methylphenidate HCl 54 mg 54 mg PO DAILY 06/01/20 06/01/20 tablet,extended release 24 hr neomycin 500 mg tablet 1 gram PO BID tab 06/01/20 06/01/20 pantoprazole 40 mg tablet,delayed 40 mg PO DAILY 06/01/20 06/01/20 release rifaximin 550 mg tablet 550 mg PO TID tab 06/01/20 06/01/20 topiramate 100 mg tablet 100 mg PO BID 06/01/20 06/01/20 Previous Rx's Medication Instructions Recorded sumatriptan 5 mg/actuation nasal 5 mg NASAL ONCE PRN #1 each 03/09/19 spray fluconazole [Diflucan] 150 mg PO Q3D #2 tab 06/26/20 hydrocodone-acetaminophen [Grayson] 1 tab PO Q4-6H PRN #7 tab 06/26/20 sulfamethoxazole-trimethoprim 1 tab PO BID #14 tab 06/26/20 [Bactrim DS] Allergies Allergy/AdvReac Type Severity Reaction Status Date / Time No Known Drug Allergies Allergy Verified 06/01/20 14:36 Review of Systems <HERB Rae - Last Filed: 06/26/20 16:35> Review of Systems Narrative: GENERAL: Denies chills, fatigue, malaise, fever, sweats. HEENT: Denies sinus pain, ear pain, sore throat, difficulty swallowing, dizziness. RESPIRATORY: Denies dyspnea, cough, wheezing, hemoptysis, sputum. CARDIOVASCULAR: Denies chest pain, palpitations, orthopnea, edema, GASTROINTESTINAL: See HPI : See HPI MUSCULOSKELETAL: denies weakness, joint pain, or bony pain SKIN: Denies rash, skin lesions, or other NEUROLOGIC: Denies weakness, headache, numbness, change in speech, confusion, seizures, incoordination. PSYCHIATRIC: No concerning psychosocial issues. 12 point review of systems is negative except for those stated above Patient History <HERB Rae - Last Filed: 06/26/20 16:35> Medical History Crohn's disease Headache History of gastric ulcer Irritable bowel syndrome Situational anxiety Surgical History Status post cholecystectomy Family History Grandfather Diabetes mellitus Heart disease Father Cancer Social History Smoking Status: Never smoker second hand exposure: No substance use type: does not use Smoking Status: Never smoker alcohol intake frequency: holidays/special occasions only Substance Use Type: does not use Exam <HAKEEM Rae-SADIE - Last Filed: 06/26/20 16:35> Narrative Exam Narrative: GENERAL: This is a well-nourished, well-developed patient, in mild distress. HEAD: Atraumatic. Normocephalic. No temporal or scalp tenderness. EYES: Pupils equal round and reactive. Extraocular motions intact. No scleral i cterus. No injection or drainage. ENT: Nose without bleeding, purulent drainage or septal hematoma. Wearing a mask Airway patent. NECK: Trachea midline. No JVD or lymphadenopathy. Supple, nontender, no meningeal signs. CARDIOVASCULAR: Regular rate and rhythm without murmurs, gallops, or rubs. RESPIRATORY: Clear to auscultation. Breath sounds equal bilaterally. No wheezes, rales, or rhonchi. No cough. No increased respiratory effort. No accessory muscle use. GASTROINTESTINAL: Abdomen soft, pain to palpation left lower quadrant suprapubic pain to palpation with slight guarding noted, nondistended. No hepato- splenomegaly, or palpable masses. EXTREMITIES: No clubbing, cyanosis, or edema. No joint tenderness, effusion, or edema noted. BACK: Nontender without deformity or crepitance. No flank tenderness. NEURO: AOx3. SKIN: No rash or erythema on visible skin Initial Vital Signs Initial Vital Signs: Vital Signs Pulse Rate 68 06/26/20 11:18 Blood Pressure 121/76 06/26/20 11:18 Pulse Oximetry 100 06/26/20 11:18 <Huber Helton DO - Last Filed: 06/26/20 16:44> Initial Vital Signs Initial Vital Signs: Vital Signs Pulse Rate 68 06/26/20 11:18 Blood Pressure 121/76 06/26/20 11:18 Pulse Oximetry 100 06/26/20 11:18 Scores <HERB Rae - Last Filed: 06/26/20 16:35> GCS Gilberto coma scale eye opening: Spontaneous Gilberto coma scale verbal response: Orientated Gilberto coma scale motor response: Obey commands Gilberto coma scale total score: 15 qSOFA Altered Mental Status (GCS <15): No Respiratory rate greater than/equal to 22: No Systolic blood pressure less than or equal to 100: No qSOFA Total: 0 0-1 Not High Risk 1-3 High risk Course <CANDACE RaeP-BC - Last Filed: 06/26/20 16:35> Orders Ordered: ED Orders 06/26/20 11:21 US pelvic complete Stat 06/26/20 11:40 Complete Blood Count AUTO DIFF Stat Comprehensive Metabolic Panel Stat Lipase Stat Urine Culture Stat Urine Microscopic Stat 06/26/20 13:14 CT abdomen pelvis w con Stat Discontinued Medications Hydrocodone Bitart/Acetaminophen (Hydrocodone/Acet 5/325 Tablet) 1 tab PO NOW ONE Stop: 06/26/20 14:19 Last Admin: 06/26/20 15:02 Dose: 1 tab Documented by: JAY Sodium Chloride (Normal Saline 0.9%) 1,000 mls @ 1,000 mls/hr IV BOLUS ONE Stop: 06/26/20 13:25 Last Infusion: 06/26/20 13:49 Dose: 0 mls/hr Documented by: Admin: 06/26/20 12:34 Dose: 1,000 mls/hr Documented by: JAY Ketorolac Tromethamine (Ketorolac 60 Mg/2 Ml Vial) 30 mg IV NOW ONE Stop: 06/26/20 13:10 Last Admin: 06/26/20 13:29 Dose: 30 mg Documented by: JAY Ondansetron HCl (Ondansetron 4 Mg/2 Ml Inj) 4 mg IV NOW ONE Stop: 06/26/20 12:27 Last Admin: 06/26/20 12:34 Dose: 4 mg Documented by: JAY Trimethoprim/Sulfamethoxazole (Trimeth/Sulfa 160/800 (Ds) Tablet) 1 tab PO NOW ONE Stop: 06/26/20 14:24 Last Admin: 06/26/20 15:03 Dose: 1 tab Documented by: CVRADHA Vital Signs Vital signs: Vital Signs - 8 hr 06/26/20 11:18 06/26/20 11:20 06/26/20 13:37 Temperature 98.0 F Pulse Rate 68 70 69 Respiratory Rate 22 Blood Pressure 121/76 121/76 Pulse Oximetry 100 99 100 06/26/20 13:38 06/26/20 15:21 Temperature 98.1 F Pulse Rate 66 83 Respiratory Rate 14 Blood Pressure 115/64 114/66 Pulse Oximetry 100 100 <Huber Helton DO - Last Filed: 06/26/20 16:44> Orders Ordered: ED Orders 06/26/20 11:21 US pelvic complete Stat 06/26/20 11:40 Complete Blood Count AUTO DIFF Stat Comprehensive Metabolic Panel Stat Lipase Stat Urine Culture Stat Urine Microscopic Stat 06/26/20 13:14 CT abdomen pelvis w con Stat Discontinued Medications Hydrocodone Bitart/Acetaminophen (Hydrocodone/Acet 5/325 Tablet) 1 tab PO NOW ONE Stop: 06/26/20 14:19 Last Admin: 06/26/20 15:02 Dose: 1 tab Documented by: JAY Sodium Chloride (Normal Saline 0.9%) 1,000 mls @ 1,000 mls/hr IV BOLUS ONE Stop: 06/26/20 13:25 Last Infusion: 06/26/20 13:49 Dose: 0 mls/hr Documented by: Admin: 06/26/20 12:34 Dose: 1,000 mls/hr Documented by: JAY Ketorolac Tromethamine (Ketorolac 60 Mg/2 Ml Vial) 30 mg IV NOW ONE Stop: 06/26/20 13:10 Last Admin: 06/26/20 13:29 Dose: 30 mg Documented by: JAY Ondansetron HCl (Ondansetron 4 Mg/2 Ml Inj) 4 mg IV NOW ONE Stop: 06/26/20 12:27 Last Admin: 06/26/20 12:34 Dose: 4 mg Documented by: JAY Trimethoprim/Sulfamethoxazole (Trimeth/Sulfa 160/800 (Ds) Tablet) 1 tab PO NOW ONE Stop: 06/26/20 14:24 Last Admin: 06/26/20 15:03 Dose: 1 tab Documented by: JAY Vital Signs Vital signs: Vital Signs - 8 hr 06/26/20 11:18 06/26/20 11:20 06/26/20 13:37 Temperature 98.0 F Pulse Rate 68 70 69 Respiratory Rate 22 Blood Pressure 121/76 121/76 Pulse Oximetry 100 99 100 06/26/20 13:38 06/26/20 15:21 Temperature 98.1 F Pulse Rate 66 83 Respiratory Rate 14 Blood Pressure 115/64 114/66 Pulse Oximetry 100 100 MDM - Abdominal Pain <HERB Rae - Last Filed: 06/26/20 16:35> Differential Diagnosis Differential diagnosis: Likely abdominal pain, acute appendicitis, calculus of kidney, constipation and small bowel obstruction Lab Data Attestation: I reviewed the patient's lab results. Result diagrams: 06/26/20 11:40 06/26/20 11:40 Labs: Lab Results 06/26/20 06/26/20 06/26/20 Range/Units 11:40 11:40 11:40 WBC 4.6 (4.5-11.0) X10^3/uL RBC 4.48 (4.0-5.2) X10^6/uL Hgb 13.4 (12.0-16.0) g/dL Hct 39.9 (36-46) % MCV 89.0 (80-100) fL MCH 29.9 (26-34) PG MCHC 33.6 (30-36) % RDW 12.7 (11.6-14.8) % Plt Count 164 (150-400) X10^3/uL Neut % (Auto) 44.6 L (50-75) % Lymph % (Auto) 44.4 H (25-40) % Whiteside % (Auto) 8.2 (3-14) % Eos % (Auto) 1.5 L (2-4) % Baso % (Auto) 1.3 (0-2) % Neut # (Auto) 2100 (5176-1269) /uL Lymph # (Auto) 2100 (6280-5769) /uL [place] # (Auto) 400 (0-900) /uL Eos # (Auto) 100 (0-450) /uL Baso # (Auto) 100 (0-100) /uL Sodium 137 (137-145) mmol/L Potassium 3.9 (3.4-5.1) mmol/L Chloride 105 (98-107) mmol/L Carbon Dioxide 27 (22-32) mmol/L BUN 10 (7-17) mg/dL Creatinine 0.70 (0.52-1.04) mg/dL Estimated GFR > 60.0 (>60) mL/min BUN/Creatinine Ratio 14.3 (6-22) Glucose 96 (70-100) mg/dL Calcium 8.8 (8.4-10.2) mg/dL Total Bilirubin 0.5 (0.2-1.3) mg/dL AST 35 (14-36) IU/L ALT 74 H (<35) IU/L Alkaline Phosphatase 75 (38-126) U/L Total Protein 7.3 (6.3-8.2) g/dL Albumin 4.3 (3.5-5.0) g/dL Globulin 3.0 (1.7-4.1) g/dL Albumin/Globulin Ratio 1.4 (1.0-2.8) Lipase 79 (23-300) U/L Urine RBC None seen (0-5/HPF) Urine WBC 5-10/hpf H (0-5/HPF) Ur Squamous Epith Cells 5-10 /hpf H (0-5/HPF) Amorphous Sediment 1+ Urine Bacteria Moderate (10-30) H (None) Urine Mucus 1+ H (Negative) Ur Culture Indicated? Specimen cultured Point of care testing: Point of Care Testing Test Results Negative Urine Dip Bedside Urine Glucose Negative Bedside Urine Bilirubin - Negative Bedside Urine Ketone - Negative Urine Specific [place] 1.020 Bedside Urine Occult Blood - Negative Bedside Urine pH 6.5 Bedside Urine Protein - Negative Bedside Urine Urobilinogen - Negative Bedside Urine Nitrite - Negative Bedside Urine Leukocytes + [address] scan - abdomen/pelvis: Radiologist's Impression: [address] [place] [id number] Scan ReportSigned Patient: La Joseph [facility]#: [id number]: 1995Acct:[id number]/Sex: 25 / FDate of Service: 06/26/20Loc: EDAccession Number: [id number] Procedure: CT abdomen pelvis w con Ordering Provider: Tracy Harley [facility] PROCEDURE: CT ABDOMEN PELVIS W CON INDICATIONS: severe llq pain TECHNIQUE: After the administration of intravenous contrast, 5 mm thick sections acquired from the diaphragm to the symphysis. 5 mm coronal and sagittal reformats were acquired. For radiation dose reduction, the following was used: automated exposure control, adjustment of mA and/or kV according to patient size. COMPARISON: None. FINDINGS: Image quality: Excellent. ABDOMEN: Lung bases: Lung bases are clear. Heart size is normal. Solid organs: Liver is normal in size and enhancement. Gallbladder has been removed. Biliary system is non dilated. Pancreas enhances normally. Spleen is normal in size and enhancement. No adrenal nodules. Kidneys demonstrate normal size and enhancement, without hydronephrosis. Peritoneum and bowel: No abnormally dilated or thickened loop of bowel. Normal appendix. No pericolonic or mesenteric inflammatory changes. No free air or free fluid. Nodes and vessels: No retroperitoneal or mesenteric adenopathy by size criteria. Aorta and inferior vena cava are normal in size. Miscellaneous: No ventral hernias. PELVIS: Genitourinary: Bladder wall thickness is normal. Uterus and ovaries are within normal limits. Miscellaneous: No inguinal hernias or adenopathy. Bones: No suspicious bony lesions. No vertebral body compression fractures. IMPRESSION: No CT evidence of an active infectious or inflammatory process in the abdomen or pelvis. No finding to explain symptoms. Dictated by: Dereck Barclay M.D. on 06/26/2020 at 13:28 Approved by: Dereck Barclay M.D. on 06/26/2020 at 13:29 US - SOCIAL MEDIA SPECIALIST: Radiologist's Impression: [address] [place] [id number] ReportSigned Patient: La Joseph [facility]#: [id number]: 1995Acct:[id number]/Sex: 25 / FDate of Service: 06/26/20Loc: EDAccession Number: [id number] Procedure: US pelvic complete Ordering Provider: Huber Helton D.O. PROCEDURE: US PELVIC COMPLETE INDICATIONS: MORNING AFTER PILL YESTERDAY - ABDOMINAL PAIN TECHNIQUE: Real-time scanning was performed of the pelvic organs, with image documentation. Additional endovaginal scanning was necessary due to incomplete visualization of the adnexal and endometrial structures by transabdominal scanning. COMPARISON: None. FINDINGS: Transabdominal scanning: Limited scanning through the kidneys shows no hydronephrosis. No pathologic free abdominal or pelvic fluid. A small amount of free fluid in the cul-de-sac is within physiological limits. Endovaginal scanning: Uterus: Uterus is anteverted measuring 7.5 x 5.9 x 4.5 cm. The endometrium measures 3.6 mm in combined thickness. Ovaries: Right ovary measures 3.5 x 1.5 x 1.7 cm. Left ovary measures 4.1 x 3.1 x 2.6 cm. Multiple ovarian follicles are noted. There is positive blood flow to both ovaries. IMPRESSION: 1. Normal uterus and ovaries. 2. A trace amount of free fluid in the cul-de-sac is likely within physiological limits. Dictated by: Jazzmine Goodson M.D. on 06/26/2020 at 12:25 Approved by: Jazzmine Goodson M.D. on 06/26/2020 at 12:29 [facility] Narrative Medical decision making narrative: The patient is a 25-year-old female who pr esents with a chief complaint of left lower quadrant pain after taking a morning after pill last night. She has grossly normal lab work, no leukocytosis. Pelvic ultrasound reveals no gross abnormality. Given the level of her pain on exam, I did obtain a CT which also had no acute findings. The patient's urine is concerning for infection with leukocyte esterase and blood, combined with flank pain I well treat her for pyelonephritis. I discussed at length the things that we ruled out today. It is possible that this is worsening of her chronic abdominal pain. Encouraged follow-up with primary care provider and GI provider. The patient does take low-dose naltrexone daily for her ?inflamm ation,but requested the pain medication to try. I discussed that I do not believe that is likely to be effective given her naltrexone, but elected to try a small amount. I encouraged her to follow up with primary care provider in other care providers in the next few days as well as come back to the ER for any acute concerns. Discussed patient with Dr Helton. I did discuss at length the possibility and concern for pelvic inflammatory disease, however the patient declines a pelvic exam in the emergency department several times. Patient has no questions or concerns upon discharge and states understanding return precautions as well as follow-up care. She is able to tolerate her p.o. antibi otic prior to discharge. <Huber Helton, DO - Last Filed: 06/26/20 16:44> Lab Data Labs: Lab Results 06/26/20 06/26/20 06/26/20 Range/Units 11:40 11:40 11:40 WBC 4.6 (4.5-11.0) X10^3/uL RBC 4.48 (4.0-5.2) X10^6/uL Hgb 13.4 (12.0-16.0) g/dL Hct 39.9 (36-46) % MCV 89.0 (80-100) fL MCH 29.9 (26-34) PG MCHC 33.6 (30-36) % RDW 12.7 (11.6-14.8) % Plt Count 164 (150-400) X10^3/uL Neut % (Auto) 44.6 L (50-75) % Lymph % (Auto) 44.4 H (25-40) % [place]ites[place] % (Auto) 8.2 (3-14) % Eos % (Auto) 1.5 L (2-4) % Baso % (Auto) 1.3 (0-2) % Neut # (Auto) 2100 (9661-4019) /uL Lymph # (Auto) 2100 (3430-1984) /uL [place] # (Auto) 400 (0-900) /uL Eos # (Auto) 100 (0-450) /uL Baso # (Auto) 100 (0-100) /uL Sodium 137 (137-145) mmol/L Potassium 3.9 (3.4-5.1) mmol/L Chloride 105 (98-107) mmol/L Carbon Dioxide 27 (22-32) mmol/L BUN 10 (7-17) mg/dL Creatinine 0.70 (0.52-1.04) mg/dL Estimated GFR > 60.0 (>60) mL/min BUN/Creatinine Ratio 14.3 (6-22) Glucose 96 (70-100) mg/dL Calcium 8.8 (8.4-10.2) mg/dL Total Bilirubin 0.5 (0.2-1.3) mg/dL AST 35 (14-36) IU/L ALT 74 H (<35) IU/L Alkaline Phosphatase 75 (38-126) U/L Total Protein 7.3 (6.3-8.2) g/dL Albumin 4.3 (3.5-5.0) g/dL Globulin 3.0 (1.7-4.1) g/dL Albumin/Globulin Ratio 1.4 (1.0-2.8) Lipase 79 (23-300) U/L Urine RBC None seen (0-5/HPF) Urine WBC 5-10/hpf H (0-5/HPF) Ur Squamous Epith Cells 5-10 /hpf H (0-5/HPF) Amorphous Sediment 1+ Urine Bacteria Moderate (10-30) H (None) Urine Mucus 1+ H (Negative) Ur Culture Indicated? Specimen cultured Point of care testing: Point of Care Testing Test Results Negative Urine Dip Bedside Urine Glucose Negative Bedside Urine Bilirubin - Negative Bedside Urine Ketone - Negative Urine Specific [place] 1.020 Bedside Urine Occult Blood - Negative Bedside Urine pH 6.5 Bedside Urine Protein - Negative Bedside Urine Urobilinogen - Negative Bedside Urine Nitrite - Negative Bedside Urine Leukocytes + 70 Esterase Discharge Plan Departure Patient Disposition: Home Clinical Impression: Pyelonephritis Abdominal pain Qualifiers: Abdominal location: generalized Qualified Code(s): R10.84 - Generalized abdominal pain Instructions: DI for Kidney Infection, DI for Abdominal Pain-Adult Activity Restrictions/Additional Instructions: Thank you for trusting us with your care today. As discussed, your pelvic ultrasound and abdominal CT came back with no acute findings. Your lab work is reassuring. However your urine is concerning for infection, combined with her flank pain I have elected to treat you for a kidney infection I sent a prescription of Bactrim to the [facility] pharmacy in [place]. I also included a prescription for Diflucan for you. I did include a small prescription of pain medicine for you that is narcotic. However your daily medications may decrease the effectiveness of his medication. Please follow-up with your primary care provider in the next few days. As discussed, please come back to the ER for any acute concerns. This includes with abdominal pain with fever, inability keep down fluids sudden severe pain etcetera Prescriptions: New fluconazole [Diflucan] 150 mg tablet 150 mg PO Q3D Qty: 2 RF: 0 sulfamethoxazole-trimethoprim [Bactrim DS] 800-160 mg tablet 1 tab PO BID Qty: 14 RF: 0 hydrocodone-acetaminophen [Grayson] 5-325 mg tablet 1 tab PO Q4-6H PRN (Reason: pain) Qty: 7 RF: 0 No Action sumatriptan 5 mg/actuation spray,non-aerosol 5 mg NASAL ONCE PRN (Reason: migraine headache) Qty: 1 RF: 0 famotidine PO RF: 0 pantoprazole 40 mg tablet,delayed release (DR/EC) 40 mg PO DAILY RF: 0 dicyclomine 10 mg capsule 10 mg PO BID RF: 0 topiramate 100 mg tablet 100 mg PO BID RF: 0 neomycin 500 mg tablet 1 gram PO BID RF: 0 Xifaxan 550 mg tablet 550 mg PO TID RF: 0 methylphenidate HCl 54 mg tablet extended release 24hr 54 mg PO DAILY RF: 0 diphenhydramine HCl [Benadryl] 25 mg Capsule 25 mg PO BEDTIME PRN (Reason: Sleep) RF: 0 Referrals: Paras Leon DO [Primary Care Provider] - Stand Alone Forms: Work Release Note <Huber Helton DO - Last Filed: 06/26/20 16:44> Cosign ED Attending Cosignature Attestation: Dr Helton Co-Sign Statement: I was available for consultation during this patient's emergency department visit. This chart is signed by myself for administrative purposes only. I did not have direct contact with this patient during this visit. They were seen independently by the APC.
--- NOTE | 2020-06-26 13:14 | DI.CT.S_ITS ---
PROCEDURE: CT ABDOMEN PELVIS W CON INDICATIONS: severe llq pain TECHNIQUE: After the administration of intravenous contrast, 5 mm thick sections acquired from the diaphragm to the symphysis. 5 mm coronal and sagittal reformats were acquired. For radiation dose reduction, the following was used: automated exposure control, adjustment of mA and/or kV according to patient size. COMPARISON: None. FINDINGS: Image quality: Excellent. ABDOMEN: Lung bases: Lung bases are clear. Heart size is normal. Solid organs: Liver is normal in size and enhancement. Gallbladder has been removed. Biliary system is non dilated. Pancreas enhances normally. Spleen is normal in size and enhancement. No adrenal nodules. Kidneys demonstrate normal size and enhancement, without hydronephrosis. Peritoneum and bowel: No abnormally dilated or thickened loop of bowel. Normal appendix. No pericolonic or mesenteric inflammatory changes. No free air or free fluid. Nodes and vessels: No retroperitoneal or mesenteric adenopathy by size criteria. Aorta and inferior vena cava are normal in size. Miscellaneous: No ventral hernias. PELVIS: Genitourinary: Bladder wall thickness is normal. Uterus and ovaries are within normal limits. Miscellaneous: No inguinal hernias or adenopathy. Bones: No suspicious bony lesions. No vertebral body compression fractures. IMPRESSION: No CT evidence of an active infectious or inflammatory process in the abdomen or pelvis. No finding to explain symptoms. Dictated by: Dereck Barclay M.D. on 06/26/2020 at 13:28 Approved by: Dereck Barclay M.D. on 06/26/2020 at 13:29
[2020-06-26] MEDS: KETOROLAC 60 MG/2 ML VIAL 30 MG IV (13:29)
[2020-06-26 13:37] VITALS: PULSE 69; O2SAT 100
[2020-06-26 13:38] VITALS: BP 115/64; PULSE 66; O2SAT 100
[2020-06-26] MEDS: HYDROCODONE/ACET 5/325 TABLET 1 TAB PO (15:02)
[2020-06-26] MEDS: TRIMETH/SULFA 160/800 (DS) TABLET 1 TAB PO (15:03)
[2020-06-26 15:21] VITALS: BP 114/66; PULSE 83; RESP 14; TEMP 36.7; O2SAT 100
== END 2020-06-26 15:25 | disposition home or self-care (01) ==
PROVIDERS: Emergency Medicine; Emergency Provider Nurse Practitioner Family; PCP Family Medicine
DX: N12 Tubulo-interstitial nephritis, not specified as acute or chronic (principal); R10.84 Generalized abdominal pain; K50.90 Crohn's disease, unspecified, without complications; K25.9 Gastric ulcer, unspecified as acute or chronic, without hemorrhage or perforation
CPT/HCPCS: 36415; 74177; 76856; 80053; 81003; 81015; 81025; 83690; 85025; 87086; 96361; 96374; 96375; 99283; 99284; J1885; J2405; Q9967

== ENCOUNTER 2020-12-18 08:11 | Emergency (ER) | payer OTHER, SELFPAY ==
[2020-12-18] VITALS (9 sets, daily range): BP systolic 100–113; BP diastolic 58–73; PULSE 87–97; RESP 18; O2SAT 97–100; BMI 28.9
--- NOTE | 2020-12-18 08:58 | ED_ITS ---
HPI - General Adult General Chief complaint: Nausea/Vomiting/Diarrhea Stated complaint: LOOSE STOOL SINCE THURSDAY, STOMACH PAIN Time Seen by Provider: 12/18/20 08:14 Source: patient Mode of arrival: Ambulatory Limitations: no limitations History of Present Illness HPI narrative: 25-year-old female here for evaluation approximately 5 days of loose stools. No fevers. Now has abdominal discomfort. Has a history of Crohn's disease. Recently had her COVID-19 vaccine. Did have a travel from [place] but that was approximately 1 week ago. Also finished a 1 month course of antibiotics for dermatologic issue but this completed approximately 1 month ago. No urinary symptoms. Yesterday she went to her primary doctor and had a swab performed to evaluate for ?traveler's diarrhea ?but she does not have the results of this. She was not placed on antibiotics. She is here thinking that she is dehydrated. Related Data Home Medications Medication Instructions Recorded Confirmed diphenhydramine HCl [Benadryl] 25 mg PO BEDTIME PRN 01/07/19 09/25/20 dicyclomine 10 mg capsule 10 mg PO BID 06/01/20 09/25/20 famotidine PO 06/01/20 09/25/20 methylphenidate HCl 54 mg 54 mg PO DAILY 06/01/20 09/25/20 tablet,extended release 24 hr neomycin 500 mg tablet 1 gram PO BID tab 06/01/20 09/25/20 pantoprazole 40 mg tablet,delayed 40 mg PO DAILY 06/01/20 09/25/20 release rifaximin 550 mg tablet 550 mg PO TID tab 06/01/20 09/25/20 topiramate 100 mg tablet 100 mg PO BID 06/01/20 09/25/20 Previous Rx's Medication Instructions Recorded sumatriptan 5 mg/actuation nasal 5 mg NASAL ONCE PRN #1 each 03/09/19 spray fluconazole [Diflucan] 150 mg PO Q3D #2 tab 06/26/20 hydrocodone-acetaminophen [Berkey] 1 tab PO Q4-6H PRN #7 tab 06/26/20 sulfamethoxazole-trimethoprim 1 tab PO BID #14 tab 06/26/20 [Bactrim DS] Allergies Allergy/AdvReac Type Severity Reaction Status Date / Time No Known Drug Allergies Allergy Verified 12/18/20 08:53 Review of Systems Constitutional Constitutional: Denies fever(s) Cardiovascular Cardiovascular: Reports system reviewed and no additional complaints, except as documented Respiratory Respiratory: Reports system reviewed and no additional complaints, except as documented Gastrointestinal Gastrointestinal: Reports abdominal pain, Reports diarrhea and Denies vomiting Genitourinary Genitourinary: Reports system reviewed and no additional complaints, except as documented Musculoskeletal Musculoskeletal: Reports system reviewed and no additional complaints, except as documented Integumentary/Breasts Skin/Breast: Reports system reviewed and no additional complaints, except as documented Neurologic Neurologic: Reports system reviewed and no additional complaints, except as documented Hematologic/Lymphatic Hematologic/Lymphatic: Reports system reviewed and no additional complaints, except as documented Allergic/Immunologic Allergic/Immunologic: Reports system reviewed and no additional complaints, exc ept as documented Patient History Medical History Crohn's disease Headache History of gastric ulcer Inverse psoriasis Irritable bowel syndrome Labyrinthitis Situational anxiety Surgical History Status post cholecystectomy Family History Grandfather Diabetes mellitus Heart disease Father Cancer Social History Smoking Status: Never smoker second hand exposure: No substance use type: does not use Smoking Status: Never smoker alcohol intake frequency: holidays/special occasions only Substance Use Type: does not use Exam Initial Vital Signs Initial Vital Signs: Vital Signs Pulse Rate 97 H 12/18/20 08:54 Respiratory Rate 18 12/18/20 08:54 Blood Pressure 100/73 12/18/20 08:54 Pulse Oximetry 97 12/18/20 08:54 Const General: cooperative and comfortable Limitations: mental status not altered HENMT Head: normal to inspection and normocephalic Resp Effort & Inspection: normal respiratory effort Cardio Rate: regular rate GI Inspection: non-distended Palpation: soft and tender (Diffuse) Skin Lesions: no lesions Rashes: no rashes Neuro General: patient alert, patient awake and patient oriented x3 Cognition: normal cognition Speech: speech normal Extrem General: capillary refill normal Psych Appearance: grossly normal and well kempt Course Orders Ordered: ED Orders 12/18/20 08:51 Complete Blood Count AUTO DIFF Stat Comprehensive Metabolic Panel Stat Lipase Stat 12/18/20 09:08 Urine Microscopic Stat Discontinued Medications Al Hydrox/Mg Hydrox/Simethicone 20 ml/ Lidocaine HCl 15 ml 0 ml PO NOW ONE Stop: 12/18/20 08:59 Last Admin: 12/18/20 09:13 Dose: 20 ml Documented by: TONYA Sodium Chloride (Normal Saline 0.9%) 1,000 mls @ 1,000 mls/hr IV BOLUS ONE Stop: 12/18/20 09:57 Last Admin: 12/18/20 09:14 Dose: 1,000 mls/hr Documented by: TONYA Pantoprazole Sodium (Pantoprazole 40 Mg Vial) 40 mg IV NOW ONE Stop: 12/18/20 08:59 Last Admin: 12/18/20 09:13 Dose: 40 mg Documented by: TONYA Vital Signs Vital signs: Vital Signs - 8 hr 12/18/20 08:54 12/18/20 08:56 12/18/20 09:00 Pulse Rate 97 H 97 H Respiratory Rate 18 Blood Pressure 100/73 Pulse Oximetry 97 98 98 12/18/20 09:12 12/18/20 09:30 12/18/20 10:02 Pulse Rate 89 92 H 97 H Respiratory Rate Blood Pressure 111/60 113/67 Pulse Oximetry 100 100 99 12/18/20 10:03 12/18/20 10:30 Pulse Rate 87 92 H Respiratory Rate Blood Pressure 112/66 107/58 L Pulse Oximetry 100 100 Medical Decision Making Medical Records Medical records reviewed: Yes I reviewed the patient's medical records. Lab Data Lab results reviewed: Yes I reviewed the patient's lab results. Result diagrams: 12/18/20 08:51 12/18/20 08:51 Labs: Lab Results 12/18/20 12/18/20 12/18/20 Range/Units 08:51 08:51 09:08 WBC 8.3 (4.5-11.0) X10^3/uL RBC 5.54 H (4.0-5.2) X10^6/uL Hgb 16.3 H (12.0-16.0) g/dL Hct 49.1 H (36-46) % MCV 88.5 (80-100) fL MCH 29.4 (26-34) PG MCHC 33.3 (30-36) % RDW 13.6 (11.6-14.8) % Plt Count 243 (150-400) X10^3/uL Neut % (Auto) 74.9 (50-75) % Lymph % (Auto) 13.8 L (25-40) % Pierce % (Auto) 10.9 (3-14) % Eos % (Auto) 0.0 L (2-4) % Baso % (Auto) 0.4 (0-2) % Neut # (Auto) 6300 (3996-0286) /uL Lymph # (Auto) 1100 (7075-2514) /uL Pierce # (Auto) 900 (0-900) /uL Eos # (Auto) 0 (0-450) /uL Baso # (Auto) 0 (0-100) /uL Sodium 139 (137-145) mmol/L Potassium 3.6 (3.4-5.1) mmol/L Chloride 109 H (98-107) mmol/L Carbon Dioxide 17 L (22-32) mmol/L BUN 12 (7-17) mg/dL Creatinine 1.01 (0.52-1.04) mg/dL Estimated GFR > 60.0 (>60) mL/min BUN/Creatinine Ratio 11.9 (6-22) Glucose 118 H (70-100) mg/dL Calcium 9.9 (8.4-10.2) mg/dL Total Bilirubin 0.6 (0.2-1.3) mg/dL AST 27 (14-36) IU/L ALT 71 H (<35) IU/L Alkaline Phosphatase 111 (38-126) U/L Total Protein 8.9 H (6.3-8.2) g/dL Albumin 5.1 H (3.5-5.0) g/dL Globulin 3.8 (1.7-4.1) g/dL Albumin/Globulin Ratio 1.3 (1.0-2.8) Lipase 77 (23-300) U/L Urine RBC None seen (0-5/HPF) Urine WBC 1-5/hpf (0-5/HPF) Ur Squamous Epith Cells 5-10 /hpf H (0-5/HPF) Amorphous Sediment 2+ Urine Bacteria Few (2-10) H (None) Urine Mucus 2+ H (Negative) Ur Culture Indicated? Cult not indicated Point of Care Testing Test Results Negative Urine Dip Bedside Urine Glucose Negative Bedside Urine Bilirubin ++ 2 Bedside Urine Ketone - Negative Urine Specific [place] 1.030 Bedside Urine Occult Blood - Negative Bedside Urine pH 6.0 Bedside Urine Protein + 30 Bedside Urine Urobilinogen - Negative Bedside Urine Nitrite - Negative Bedside Urine Leukocytes - Negative Esterase Point of care testing: Point of Care Testing Test Results Negative Urine Dip Bedside Urine Glucose Negative Bedside Urine Bilirubin ++ 2 Bedside Urine Ketone - Negative Urine Specific [place] 1.030 Bedside Urine Occult Blood - Negative Bedside Urine pH 6.0 Bedside Urine Protein + 30 Bedside Urine Urobilinogen - Negative Bedside Urine Nitrite - Negative Bedside Urine Leukocytes - Negative Esterase MDM Narrative Medical decision making narrative: Patient does have a benign abdominal exam. Her labs are reassuring. She has a stool culture pending that was collected yesterday by her primary doctor. I feel that we should hold on any antibiotics for now. She is afebrile. Had a discussion with her regarding whether not we should obtain a CT scan given her history of Crohn's disease or wait. I feel given her vital signs and her exam that we should hold on a CT scan. She is not having any bleeding with her stool. She is not having any nausea. She was given fluids. We did discuss the use of anti diarrheal medications. Will have her contact her primary provider for follow-up. She is given return precauti ons. She expressed understanding and agreement. Discharge Plan Departure Patient Disposition: Home Clinical Impression: Abdominal pain, Diarrhea Instructions: Diarrhea, DI for Abdominal Pain-Adult Activity Restrictions/Additional Instructions: I recommend that we hold on given you any antibiotics. Diarrhea until the cultures that were obtained yesterday by your primary doctor have been resulted. You can consider taking a medicine called Imodium/loperamide to help with your symptoms. Be sure to increase your fluid intake. Contact your primary provider for a follow-up. Return to the emergency department for any new or worsening symptoms. Prescriptions: No Action sumatriptan 5 mg/actuation spray,non-aerosol 5 mg NASAL ONCE PRN (Reason: migraine headache) Qty: 1 RF: 0 famotidine PO RF: 0 pantoprazole 40 mg tablet,delayed release (DR/EC) 40 mg PO DAILY RF: 0 dicyclomine 10 mg capsule 10 mg PO BID RF: 0 topiramate 100 mg tablet 100 mg PO BID RF: 0 neomycin 500 mg tablet 1 gram PO BID RF: 0 Xifaxan 550 mg tablet 550 mg PO TID RF: 0 methylphenidate HCl 54 mg tablet extended release 24hr 54 mg PO DAILY RF: 0 diphenhydramine HCl [Benadryl] 25 mg Capsule 25 mg PO BEDTIME PRN (Reason: Sleep) RF: 0 fluconazole [Diflucan] 150 mg tablet 150 mg PO Q3D Qty: 2 RF: 0 sulfamethoxazole-trimethoprim [Bactrim DS] 800-160 mg tablet 1 tab PO BID Qty: 14 RF: 0 hydrocodone-acetaminophen [Berkey] 5-325 mg tablet 1 tab PO Q4-6H PRN (Reason: pain) Qty: 7 RF: 0 Referrals: Paras Leon, [Primary Care Provider] -
[2020-12-18 09:08] LABS: Add Manual Diff / Slide Review NO; Basophils Absolute Auto 0 /uL (0-100); Basophils Percent Auto 0.4 % (0-2); Eosinophils Absolute Auto 0 /uL (0-450); Hematocrit 49.1 % (36-46); Hemoglobin 16.3 g/dL (12.0-16.0); Lymphocytes Absolute Auto 1100 /uL (1100-4500); Lymphocytes Percent Auto 13.8 % (25-40); Mean Corpuscular HGB Conc 33.3 % (30-36); Mean Corpuscular Hemoglobin 29.4 PG (26-34); Mean Corpuscular Volume 88.5 fL (80-100); Monocytes Absolute Auto 900 /uL (0-900); Monocytes Percent Auto 10.9 % (3-14); Neutrophils Absolute Auto 6300 /uL (1500-7000); Neutrophils Percent Auto 74.9 % (50-75); Platelet Count 243 X10^3/uL (150-400); Red Blood Cell Count 5.54 X10^6/uL (4.0-5.2); Red Cell Distribution Width 13.6 % (11.6-14.8); White Blood Cell Count 8.3 X10^3/uL (4.5-11.0)
[2020-12-18 09:11] LABS: Alanine Aminotransferase 71 IU/L (<35); Albumin 5.1 g/dL (3.5-5.0); Albumin Globulin Ratio 1.3 (1.0-2.8); Alkaline Phosphatase 111 U/L (38-126); Aspartate Aminotransferase 27 IU/L (14-36); BUN Creatinine Ratio 11.9 (6-22); Bilirubin Total 0.6 mg/dL (0.2-1.3); Blood Urea Nitrogen 12 mg/dL (7-17); Calcium 9.9 mg/dL (8.4-10.2); Carbon Dioxide 17 mmol/L (22-32); Chloride 109 mmol/L (98-107); Estimated Glomerular Filt Rate > 60.0 mL/min (>60); Globulin 3.8 g/dL (1.7-4.1); Glucose 118 mg/dL (70-100); HEMOLYSIS < 15 (0-50); Lipase 77 U/L (23-300); Potassium 3.6 mmol/L (3.4-5.1); Sodium 139 mmol/L (137-145); Total Protein 8.9 g/dL (6.3-8.2)
[2020-12-18] MEDS: MAG HYDROX/ALUMINUM/SIMETH SUS 20 ML, LIDOCAINE VISCOUS 2% 15 ML PO (09:13)
[2020-12-18] MEDS: PANTOPRAZOLE 40 MG VIAL IV (09:13)
[2020-12-18] MEDS: SODIUM CHLORIDE 0.9% 1,000 ML 1000 ML IV (09:14)
[2020-12-18 09:25] LABS: RBC Urine None Seen (0-5/HPF)
[2020-12-18 09:34] LABS: Amorphous Sediment Urine 2+; Bacteria Urine Few (2-10); Culture Indicated Urine Cult Not Indicated; Mucus Urine 2+ (Negative); Squamous Epithelial Cell Urine 5-10 /HPF (0-5/HPF); WBC Urine 1-5/HPF (0-5/HPF)
== END 2020-12-18 11:07 | disposition home or self-care (01) ==
PROVIDERS: Emergency Provider Emergency Medicine; PCP Family Medicine
DX: R10.9 Unspecified abdominal pain (principal); R19.7 Diarrhea, unspecified
CPT/HCPCS: 36415; 80053; 81003; 81015; 81025; 83690; 85025; 96361; 96374; 99284; C9113

== ENCOUNTER → 2021-04-11 19:08 | Outpatient (CLI) | payer OTHER, SELFPAY ==
[2021-04-11 19:37] LABS: COVID19 -Nasal RAPID POSITIVE (Negative)
== END ==
PROVIDERS: PCP Family Medicine; Visit Provider Nurse Practitioner
DX: U07.1 COVID-19 (principal); Z20.822 Contact with and (suspected) exposure to COVID-19
CPT/HCPCS: 87635

== ENCOUNTER 2021-11-11 12:57 | Emergency (ER) | payer OTHER, SELFPAY ==
[2021-11-11 13:14] VITALS: BP 120/66; PULSE 82; RESP 16; TEMP 36.6; O2SAT 98; BMI 31.7
[2021-11-11] MEDS: ONDANSETRON 4 MG/2 ML INJ IV (14:22)
[2021-11-11] MEDS: SODIUM CHLORIDE 0.9% 1,000 ML 1000 ML IV (14:22)
[2021-11-11] MEDS: FAMOTIDINE 20 MG/2 ML VIAL IV (14:28)
--- NOTE | 2021-11-11 15:30 | ED_ITS ---
HPI - Nausea/Vomiting/Diarrhea <Winnie Barber PA-C - Last Filed: 11/11/21 20:42> General Chief complaint: Nausea/Vomiting/Diarrhea Stated complaint: Vomiting Time Seen by Provider: 11/11/21 14:20 History of Present Illness HPI Narrative: 26-year-old female with past medical history IBS, status post a gastric balloon placement for weight loss 3 days prior to arrival, presents to the ED with nausea, vomiting, epigastric pain. Patient had a gastric balloon placement for weight loss on 11/09/2021, started experiencing nausea, vomiting right after she came home on the same day. Patient also complains of epigastric pain. Patient states that her nausea has not been controlled with sub lingual on than [place]. Patient was also prescribed scopolamine patch that has been ineffective. Patient also prescribed Levsin, Reglan. Patient states she has been unable to keep down anything other than the Zofran due to the nausea. Patient endorses subjective fevers, chills. Denies cough, chest pain, shortness of breath. Patient states she has not had a bowel movement since the surgery. Related Data Home Medications Medication Instructions Recorded Confirmed diphenhydramine HCl 25 mg capsule 25 mg PO BEDTIME PRN 01/07/19 09/25/20 (Benadryl) dicyclomine 10 mg capsule 10 mg PO BID 06/01/20 09/25/20 famotidine PO 06/01/20 09/25/20 methylphenidate HCl 54 mg 54 mg PO DAILY 06/01/20 09/25/20 tablet,extended release 24 hr neomycin 500 mg tablet 1 gram PO BID tab 06/01/20 09/25/20 pantoprazole 40 mg tablet,delayed 40 mg PO DAILY 06/01/20 09/25/20 release rifaximin 550 mg tablet (Xifaxan) 550 mg PO TID tab 06/01/20 09/25/20 topiramate 100 mg tablet 100 mg PO BID 06/01/20 09/25/20 Previous Rx's Medication Instructions Recorded sumatriptan 5 mg/actuation nasal 5 mg NASAL ONCE PRN #1 each 03/09/19 spray fluconazole 150 mg tablet 150 mg PO Q3D #2 tab 06/26/20 (Diflucan) hydrocodone 5 mg-acetaminophen 325 1 tab PO Q4-6H PRN #7 tab 06/26/20 mg tablet (Maurepas) sulfamethoxazole 800 1 tab PO BID #14 tab 06/26/20 mg-trimethoprim 160 mg tablet (Bactrim DS) Allergies Allergy/AdvReac Type Severity Reaction Status Date / Time No Known Drug Allergies Allergy Verified 04/11/21 18:35 Review of Systems <Winnie Barber PA-C - Last Filed: 11/11/21 20:42> Review of Systems ROS Unobtainable: All systems reviewed & are unremarkable except as noted in HPI and below Constitutional Constitutional: Reports chills, Denies fatigue, Reports fever(s), Denies frequent falls, Denies lethargy and Denies weakness Eyes Eyes: Denies change in vision, Denies eye discharge, Denies irritation and Denies loss of vision ENT Ears, Nose, Mouth, and Throat: Denies change in voice, Denies dizziness, Denies neck pain, Denies sore throat and Denies throat swelling Cardiovascular Cardiovascular: Denies chest pain, Denies irregular heart rhythm, Denies lightheadedness, Denies palpitations, Denies dyspnea, Denies dyspnea on exertion and Denies orthopnea Respiratory Respiratory: Denies cough, Denies dyspnea, Denies dyspnea on exertion and Denies wheezing Gastrointestinal Gastrointestinal: Reports abdominal pain (Epigastric pain), Denies change in bowel habits, Denies diarrhea, Reports nausea and Reports vomiting Genitourinary Genitourinary: Denies hematuria, Denies flank pain, Denies urinary incontinence and Denies urinary urgency Musculoskeletal Musculoskeletal: Denies back pain, Denies muscle weakness, Denies neck pain, Denies numbness and Denies tingling Integumentary/Breasts Skin/Breast: Denies pruritus, Denies erythema, Denies rash and Denies wounds Neurologic Neurologic: Denies behavioral changes, Denies confusion, Denies dizziness, Denies frequent falls, Denies loss of vision, Denies numbness, Denies tingling and Denies weakness Psychiatric Psychiatric: Denies anxiety, Denies behavioral changes, Denies confusion, Denies depression, Denies homicidal ideation and Denies suicidal ideation Endocrine Endocrine: Denies fatigue, Denies flushing and Denies palpitations Hematologic/Lymphatic Hematologic/Lymphatic: Denies easy bruising Allergic/Immunologic Allergic/Immunologic: Denies urticaria, Denies throat swelling and Denies wheezing Patient History <Winnie Barber PA-C - Last Filed: 11/11/21 20:42> Medical History Crohn's disease Headache History of gastric ulcer Inverse psoriasis Irritable bowel syndrome Labyrinthitis Situational anxiety Surgical History Status post cholecystectomy Family History Grandfather Diabetes mellitus Heart disease Father Cancer Social History Smoking Status: Never smoker second hand exposure: No substance use type: does not use Smoking Status: Never smoker alcohol intake frequency: holidays/special occasions only Substance Use Type: does not use Exam <Winnie Barber PA-C - Last Filed: 11/11/21 20:42> Initial Vital Signs Initial Vital Signs: Vital Signs Temperature 98 F 11/11/21 13:14 Pulse Rate 82 11/11/21 13:14 Respiratory Rate 16 11/11/21 13:14 Blood Pressure 120/66 11/11/21 13:14 Pulse Oximetry 98 11/11/21 13:14 Const General: cooperative and healthy appearing HENAK Head: normal to inspection Eyes General: Yes appearance normal, both eyes and all related structures Neck Neck: normal visual inspection Resp Effort & Inspection: normal respiratory effort Auscultation: clear to auscultation bilaterally Cardio Rate: regular rate Rhythm: regular rhythm GI Inspection: normal to inspection Other: Abdomen is soft, nondistended, tender to palpation in the epigastric region. Skin General: no rashes or lesions noted Neuro General: patient alert, patient awake and patient oriented x3 Psych Appearance: grossly normal Mental Status: mental status grossly normal <Sinan Godinez DO - Last Filed: 11/15/21 00:14> Initial Vital Signs Initial Vital Signs: Vital Signs Temperature 98 F 11/11/21 13:14 Pulse Rate 82 11/11/21 13:14 Respiratory Rate 16 11/11/21 13:14 Blood Pressure 120/66 11/11/21 13:14 Pulse Oximetry 98 11/11/21 13:14 Course <Winnie Barber PA-C - Last Filed: 11/11/21 20:42> Orders Ordered: Discontinued Medications Famotidine (Famotidine 20 Mg/2 Ml Vial) 20 mg IV NOW [facility] Last Admin: 11/11/21 14:28 Dose: 20 mg Documented by: TONYA Sodium Chloride (Normal Saline 0.9%) 1,000 mls @ 1,000 mls/hr IV BOLUS ONE Stop: 11/11/21 15:13 Last Infusion: 11/11/21 15:30 Dose: 0 mls/hr Documented by: Admin: 11/11/21 14:22 Dose: 1,000 mls/hr Documented by: TONYA Lorazepam (Lorazepam 2 Mg/Ml Inj) 2 mg IV NOW ONE Stop: 11/11/21 19:19 Last Admin: 11/11/21 19:35 Dose: 1 mg Documented by: TONYA Metoclopramide HCl (Metoclopramide 10 Mg/2 Ml Inj) 10 mg IV NOW ONE Stop: 11/11/21 15:48 Last Admin: 11/11/21 16:40 Dose: 10 mg Documented by: TONYA Ondansetron HCl (Ondansetron 4 Mg/2 Ml Inj) 4 mg IV NOW ONE Stop: 11/11/21 14:15 Last Admin: 11/11/21 14:22 Dose: 4 mg Documented by: TONYA Vital Signs Vital signs: Vital Signs - 8 hr 11/11/21 13:14 11/11/21 16:55 11/11/21 19:32 Temperature 98 F Pulse Rate 82 80 85 Respiratory Rate 16 16 Blood Pressure 120/66 135/61 Pulse Oximetry 98 99 100 11/11/21 20:06 Temperature Pulse Rate 88 Respiratory Rate Blood Pressure 127/64 Pulse Oximetry 98 <Sinan Godinez DO - Last Filed: 11/15/21 00:14> Orders Ordered: Discontinued Medications Famotidine (Famotidine 20 Mg/2 Ml Vial) 20 mg IV NOW [facility] Last Admin: 11/11/21 14:28 Dose: 20 mg Documented by: TONYA Sodium Chloride (Normal Saline 0.9%) 1,000 mls @ 1,000 mls/hr IV BOLUS ONE Stop: 11/11/21 15:13 Last Infusion: 11/11/21 15:30 Dose: 0 mls/hr Documented by: Admin: 11/11/21 14:22 Dose: 1,000 mls/hr Documented by: TONYA Lorazepam (Lorazepam 2 Mg/Ml Inj) 2 mg IV NOW ONE Stop: 11/11/21 19:19 Last Admin: 11/11/21 19:35 Dose: 1 mg Documented by: TONYA Metoclopramide HCl (Metoclopramide 10 Mg/2 Ml Inj) 10 mg IV NOW ONE Stop: 11/11/21 15:48 Last Admin: 11/11/21 16:40 Dose: 10 mg Documented by: TONYA Ondansetron HCl (Ondansetron 4 Mg/2 Ml Inj) 4 mg IV NOW ONE Stop: 11/11/21 14:15 Last Admin: 11/11/21 14:22 Dose: 4 mg Documented by: TONYA Vital Signs Vital signs: Vital Signs - 8 hr 11/11/21 13:14 11/11/21 16:55 11/11/21 19:32 Temperature 98 F Pulse Rate 82 80 85 Respiratory Rate 16 16 Blood Pressure 120/66 135/61 Pulse Oximetry 98 99 100 11/11/21 20:06 Temperature Pulse Rate 88 Respiratory Rate Blood Pressure 127/64 Pulse Oximetry 98 MDM - Nausea/Vomiting/Diarrhea <Winnie Barber PA-C - Last Filed: 11/11/21 20:42> Lab Data Lab results narrative: Labs within normal limits. Result diagrams: 11/11/21 14:15 11/11/21 14:15 Labs: Lab Results 11/11/21 11/11/21 11/11/21 Range/Units 14:15 14:15 14:15 WBC 7.7 (4.5-11.0) X10^3/uL RBC 5.15 (4.0-5.2) X10^6/uL Hgb 15.8 (12.0-16.0) g/dL Hct 45.6 (36-46) % MCV 88.5 (80-100) fL MCH 30.6 (26-34) PG MCHC 34.6 (30-36) % RDW 12.7 (11.6-14.8) % Plt Count 211 (150-400) X10^3/uL Neut % (Auto) 69.4 (50-75) % Lymph % (Auto) 18.6 L (25-40) % Parker % (Auto) 11.3 (3-14) % Eos % (Auto) 0.1 L (2-4) % Baso % (Auto) 0.6 (0-2) % Neut # (Auto) 5300 (7754-4356) /uL Lymph # (Auto) 1400 (3579-7536) /uL Parker # (Auto) 900 (0-900) /uL Eos # (Auto) 0 (0-450) /uL Baso # (Auto) 0 (0-100) /uL Sodium 139 (137-145) mmol/L Potassium 4.7 (3.4-5.1) mmol/L Chloride 96 L (98-107) mmol/L Carbon Dioxide 32 (22-32) mmol/L BUN 19 H (7-17) mg/dL Creatinine 0.97 (0.52-1.04) mg/dL Estimated GFR > 60 (>60) mL/min BUN/Creatinine Ratio 19.6 (6-22) Glucose 119 H (70-100) mg/dL Lactate 1.3 (0.7-2.1) mmol/L Calcium 9.6 (8.4-10.2) mg/dL Magnesium 2.2 (1.6-2.3) mg/dL Total Bilirubin 0.8 (0.2-1.3) mg/dL AST 31 (14-36) IU/L ALT 55 H (<35) IU/L Alkaline Phosphatase 123 (38-126) U/L Total Protein 9.1 H (6.3-8.2) g/dL Albumin 5.3 H (3.5-5.0) g/dL Globulin 3.8 (1.7-4.1) g/dL Albumin/Globulin Ratio 1.4 (1.0-2.8) Imaging Data KUB x-ray: Radiologist's Impression: PROCEDURE:? XR KUB ? INDICATIONS:? Evaluate gastric baloon placement ? TECHNIQUE:? One view of the abdomen acquired.? ? COMPARISON:? [facility], CR, XR ABDOMEN 1 VIEW, 07/18/2020, 10:23.? [facility], CR, XR ACUTE ABDOMEN SERIES, 01/07/2019, 15:20. ? FINDINGS:? ? Surgical changes and devices:? Cholecystectomy clips.? There is radiodensity overlying the medial aspect of the stomach.? There is a faint circular radiodensity overlying the expected region of the stomach. ? Bowel:? Bowel gas pattern is normal.? ? Soft tissues:? No suspicious abdominal calcifications.? Visualized solid organ contours appear normal in size.? ? Bones:? No suspicious bony lesions.? ? IMPRESSION:? Circular faint radiodensity overlying the expected region of the stomach with more focal area of increased density noted medially.? This is suspected to be related to gastric balloon placement and clinical correlation is recommended.? CT may be obtained for further evaluation.? ? Dictated by: Ludy Moran M.D. on 11/11/2021 at 16:30 ? ? Approved by: Ludy Moran M.D. on 11/11/2021 at 16:32 ? MDM Narrative Medical decision making narrative: 26-year-old female with past medical history IBS, status post a gastric balloon placement for weight loss 3 days prior to arrival, presents to the ED with na usea, vomiting, epigastric pain. Concern for bowel obstruction versus surgical complication. Will obtain labs, KUB. Will give Reglan IV, IV fluids. Called patient's surgeon Dr. Munoz's office at [facility] and spoke with a nurse, who recommended labs, IV fluids, KUB to check for balloon placement. They recommend that patient can be discharged home if emesis controlled and balloon placement appears as expected. KUB shows Circular faint radiodensity overlying the expected region of the stomach with more focal area of increased density noted medially. Will evaluate with a CT. CT without acute findings. Patient's symptoms did not improve with Zofran, Reglan. Patient responded well to Ativan, was able to keep down water. Discussed with patient that she will only be able to keep down very small amounts of fluid status post this gastric balloon surgery and advised against larger ingestions which she could end up vomiting up. Patient agrees to follow up with her gastric balloon surgeon. ED return precautions discussed with patient. Patient verbalizes understanding. <Sinan Godinez DO - Last Filed: 11/15/21 00:14> Lab Data Labs: Lab Results 11/11/21 11/11/21 11/11/21 Range/Units 14:15 14:15 14:15 WBC 7.7 (4.5-11.0) X10^3/uL RBC 5.15 (4.0-5.2) X10^6/uL Hgb 15.8 (12.0-16.0) g/dL Hct 45.6 (36-46) % MCV 88.5 (80-100) fL MCH 30.6 (26-34) PG MCHC 34.6 (30-36) % RDW 12.7 (11.6-14.8) % Plt Count 211 (150-400) X10^3/uL Neut % (Auto) 69.4 (50-75) % Lymph % (Auto) 18.6 L (25-40) % Parker % (Auto) 11.3 (3-14) % Eos % (Auto) 0.1 L (2-4) % Baso % (Auto) 0.6 (0-2) % Neut # (Auto) 5300 (1540-8267) /uL Lymph # (Auto) 1400 (9752-1111) /uL Parker # (Auto) 900 (0-900) /uL Eos # (Auto) 0 (0-450) /uL Baso # (Auto) 0 (0-100) /uL Sodium 139 (137-145) mmol/L Potassium 4.7 (3.4-5.1) mmol/L Chloride 96 L (98-107) mmol/L Carbon Dioxide 32 (22-32) mmol/L BUN 19 H (7-17) mg/dL Creatinine 0.97 (0.52-1.04) mg/dL Estimated GFR > 60 (>60) mL/min BUN/Creatinine Ratio 19.6 (6-22) Glucose 119 H (70-100) mg/dL Lactate 1.3 (0.7-2.1) mmol/L Calcium 9.6 (8.4-10.2) mg/dL Magnesium 2.2 (1.6-2.3) mg/dL Total Bilirubin 0.8 (0.2-1.3) mg/dL AST 31 (14-36) IU/L ALT 55 H (<35) IU/L Alkaline Phosphatase 123 (38-126) U/L Total Protein 9.1 H (6.3-8.2) g/dL Albumin 5.3 H (3.5-5.0) g/dL Globulin 3.8 (1.7-4.1) g/dL Albumin/Globulin Ratio 1.4 (1.0-2.8) Discharge Plan Departure Patient Disposition: Home Clinical Impression: Nausea & vomiting Instructions: DI for Vomiting -- Adult Activity Restrictions/Additional Instructions: You were evaluated in the ED today for nausea and vomiting following a gastric balloon procedure. You nausea was controlled with Ativan, Reglan, ondansetron. Please continue to take very small amounts of fluids at a time. Continue to take Reglan, ondansetron, Levsin as prescribed by your surgeon. Please follow- up with your surgeon as soon as possible. Return to the ED if you continue to vomit, or unable to keep down any fluids. Prescriptions: No Action sumatriptan 5 mg/actuation spray,non-aerosol 5 mg NASAL ONCE PRN (Reason: migraine headache) Qty: 1 0RF Rx Instructions: into each nostril once; if headache remains, may repeat once after 2 hours famotidine PO 0RF pantoprazole 40 mg tablet,delayed release (DR/EC) 40 mg PO DAILY 0RF dicyclomine 10 mg capsule 10 mg PO BID 0RF topiramate 100 mg tablet 100 mg PO BID 0RF neomycin 500 mg tablet 1 gram PO BID 0RF Xifaxan 550 mg tablet 550 mg PO TID 0RF methylphenidate HCl 54 mg tablet extended release 24hr 54 mg PO DAILY 0RF diphenhydramine HCl [Benadryl] 25 mg Capsule 25 mg PO BEDTIME PRN (Reason: Sleep) 0RF fluconazole [Diflucan] 150 mg tablet 150 mg PO Q3D Qty: 2 0RF Rx Instructions: may repeat second dose 72 hrs after first dose if symptoms persist sulfamethoxazole-trimethoprim [Bactrim DS] 800-160 mg tablet 1 tab PO BID Qty: 14 0RF hydrocodone-acetaminophen [Maurepas] 5-325 mg tablet 1 tab PO Q4-6H PRN (Reason: pain) Qty: 7 0RF Referrals: Paras Leon DO [Primary Care Provider] - <Sinan Godinez DO - Last Filed: 11/15/21 00:14> Cosign ED Attending Rohitature Attestation: I was immediately available in the department for consultation. This documentation has been reviewed and I agree with assessment and plan. Supervised by Sinan Godinez DO
--- NOTE | 2021-11-11 15:47 | DI.RAD.S_ITS ---
PROCEDURE: XR KUB INDICATIONS: Evaluate gastric baloon placement TECHNIQUE: One view of the abdomen acquired. COMPARISON: [facility], CR, XR ABDOMEN 1 VIEW, 07/18/2020, 10:23. [facility], CR, XR ACUTE ABDOMEN SERIES, 01/07/2019, 15:20. FINDINGS: Surgical changes and devices: Cholecystectomy clips. There is radiodensity overlying the medial aspect of the stomach. There is a faint circular radiodensity overlying the expected region of the stomach. Bowel: Bowel gas pattern is normal. Soft tissues: No suspicious abdominal calcifications. Visualized solid organ contours appear normal in size. Bones: No suspicious bony lesions. IMPRESSION: Circular faint radiodensity overlying the expected region of the stomach with more focal area of increased density noted medially. This is suspected to be related to gastric balloon placement and clinical correlation is recommended. CT may be obtained for further evaluation. Dictated by: Ludy Moran M.D. on 11/11/2021 at 16:30 Approved by: Ludy Moran M.D. on 11/11/2021 at 16:32
[2021-11-11 15:54] LABS: Add Manual Diff / Slide Review NO; Basophils Absolute Auto 0 /uL (0-100); Basophils Percent Auto 0.6 % (0-2); Eosinophils Absolute Auto 0 /uL (0-450); Eosinophils Percent Auto 0.1 % (2-4); Hematocrit 45.6 % (36-46); Hemoglobin 15.8 g/dL (12.0-16.0); Lymphocytes Absolute Auto 1400 /uL (1100-4500); Lymphocytes Percent Auto 18.6 % (25-40); Mean Corpuscular HGB Conc 34.6 % (30-36); Mean Corpuscular Hemoglobin 30.6 PG (26-34); Mean Corpuscular Volume 88.5 fL (80-100); Monocytes Absolute Auto 900 /uL (0-900); Monocytes Percent Auto 11.3 % (3-14); Neutrophils Absolute Auto 5300 /uL (1500-7000); Neutrophils Percent Auto 69.4 % (50-75); Platelet Count 211 X10^3/uL (150-400); Red Blood Cell Count 5.15 X10^6/uL (4.0-5.2); Red Cell Distribution Width 12.7 % (11.6-14.8); White Blood Cell Count 7.7 X10^3/uL (4.5-11.0)
[2021-11-11 16:00] LABS: Alanine Aminotransferase 55 IU/L (<35); Albumin 5.3 g/dL (3.5-5.0); Albumin Globulin Ratio 1.4 (1.0-2.8); Alkaline Phosphatase 123 U/L (38-126); Aspartate Aminotransferase 31 IU/L (14-36); BUN Creatinine Ratio 19.6 (6-22); Bilirubin Total 0.8 mg/dL (0.2-1.3); Blood Urea Nitrogen 19 mg/dL (7-17); Calcium 9.6 mg/dL (8.4-10.2); Carbon Dioxide 32 mmol/L (22-32); Chloride 96 mmol/L (98-107); Estimated Glomerular Filt Rate > 60 mL/min (>60); Globulin 3.8 g/dL (1.7-4.1); Glucose 119 mg/dL (70-100); HEMOLYSIS 16 (0-50); Lactate (Lactic Acid) 1.3 mmol/L (0.7-2.1); Magnesium 2.2 mg/dL (1.6-2.3); Potassium 4.7 mmol/L (3.4-5.1); Sodium 139 mmol/L (137-145); Total Protein 9.1 g/dL (6.3-8.2)
[2021-11-11] MEDS: METOCLOPRAMIDE 10 MG/2 ML INJ IV (16:40)
--- NOTE | 2021-11-11 16:47 | DI.CT.S_ITS ---
PROCEDURE: CT ABDOMEN PELVIS W CON INDICATIONS: N/V abd pain after gastric balloon placement TECHNIQUE: After the administration of oral and IV contrast, axial sections were acquired from the lung bases to the pubic symphysis. Coronal and sagittal reformats were performed. For radiation dose reduction, the following was used: automated exposure control, adjustment of mA and/or kV according to patient size. COMPARISON: [facility], CT, CT ABDOMEN PELVIS W CON, 06/26/2020, 13:10. FINDINGS: Image quality: Excellent. Lung bases: Unremarkable. Heart: No significant findings. Small hiatal hernia. Questionable thickening of the distal esophagus. ABDOMEN: Liver: No focal lesion. Gallbladder: Absent. Biliary ducts: Unremarkable. Pancreas: Unremarkable. Spleen: Unremarkable. Adrenal Glands: Unremarkable. Kidneys and Ureters: Unremarkable. Stomach and Bowel: Stomach is distended with the gastric balloon. There is a small amount of fluid at the gastric fundus which is within normal limits. No small bowel obstruction. A few colonic diverticuli. Normal appendix. Peritoneum: No abnormal intraperitoneal fluid. No free air. Ventral Wall: No hernia. Abdominal Nodes: No retroperitoneal or mesenteric adenopathy by size criteria. Vessels: Aorta and inferior vena cava are normal in size. PELVIS: Pelvic Organs: Small right ovarian cyst measuring 3.5 cm. Tampon in the vagina. Trace fluid in the pelvic cul-de-sac. Bladder: No stones. Pelvic Nodes: No enlarged lymph nodes. Miscellaneous: No inguinal hernias are seen. Bones: No suspicious lesion. IMPRESSION: 1. Stomach is distended with a gastric balloon. No pneumoperitoneum. No free fluid in the upper abdomen. 2. Small hiatal hernia. Questionable thickening of the distal esophagus. 3. Right ovarian cyst measuring 3.5 cm. Pelvic ultrasound could be considered. Dictated by: Rj Arias M.D. on 11/11/2021 at 18:21 Approved by: Rj Arias M.D. on 11/11/2021 at 18:29
[2021-11-11 16:55] VITALS: BP 135/61; PULSE 80; RESP 16; O2SAT 99
--- NOTE | 2021-11-11 17:02 | PC.NURSE ---
Pt denies relief, heaving witnessed. Sunil MCGOVERN notified, pt will be unable to tolerate oral contrast, new order for IV contrast only CT. CT notified.
--- NOTE | 2021-11-11 19:03 | PC.NURSE ---
Pt requesting water to drink, endorses improvement in nausea. Sunil MCGOVERN notified, awaiting CT results.
--- NOTE | 2021-11-11 19:07 | PC.NURSE ---
Pt provided ice water per request and approved by Sunil MCGOVERN, educated pt on small sips at intervals.
[2021-11-11 19:32] VITALS: PULSE 85; O2SAT 100
[2021-11-11] MEDS: LORazepam 2 MG/ML INJ IV (19:35)
[2021-11-11 20:06] VITALS: BP 127/64; PULSE 88; O2SAT 98
--- NOTE | 2021-11-11 20:24 | PC.NURSE ---
Pt provided small amount of water and a medicine cup, instructed to drink no more than medicine cup at a time, then allow 5 to 10 minutes between. Pt noted to be taking long drink of water on rounding, reports she is holding water down at this time
== END 2021-11-11 20:44 | disposition home or self-care (01) ==
PROVIDERS: Emergency Provider Student in an Organized Health Care Education/Training Program; PCP Family Medicine
DX: R11.2 Nausea with vomiting, unspecified (principal); Z48.815 Encounter for surgical aftercare following surgery on the digestive system
CPT/HCPCS: 36415; 74018; 74177; 80053; 83605; 83735; 85025; 96361; 96374; 96375; 99284; J2060; J2405; J2765; Q9967

== ENCOUNTER 2022-06-23 18:38 | Emergency (ER) | payer OTHER, SELFPAY ==
[2022-06-23 18:42] VITALS: BP 122/60; PULSE 94; RESP 16; TEMP 36.7; O2SAT 99; BMI 29.3
--- NOTE | 2022-06-23 18:48 | DI.RAD.S_ITS ---
PROCEDURE: XR CHEST 1V INDICATIONS: chest pain TECHNIQUE: One view of the chest was acquired. COMPARISON: None. FINDINGS: Surgical changes and devices: None. Lungs and pleura: Lungs are clear. No pleural effusions or pneumothorax. Mediastinum: Mediastinal contours appear normal. Heart size is normal. Bones and chest wall: No suspicious bony lesions. Overlying soft tissues appear unremarkable. IMPRESSION: No acute radiographic abnormality. Dictated by: Johnathon Matos M.D. on 06/23/2022 at 20:14 Approved by: Johnathon Matos M.D. on 06/23/2022 at 20:14
[2022-06-23 19:13] LABS: Add Manual Diff / Slide Review NO; Basophils Absolute Auto 0 /uL (0-100); Eosinophils Absolute Auto 0 /uL (0-450); Eosinophils Percent Auto 0.2 % (2-4); Hematocrit 40.6 % (36-46); Hemoglobin 14.1 g/dL (12.0-16.0); Lymphocytes Absolute Auto 2100 /uL (1100-4500); Mean Corpuscular HGB Conc 34.7 % (30-36); Mean Corpuscular Hemoglobin 30.1 PG (26-34); Mean Corpuscular Volume 86.7 fL (80-100); Monocytes Absolute Auto 300 /uL (0-900); Monocytes Percent Auto 6.4 % (3-14); Neutrophils Absolute Auto 2200 /uL (1500-7000); Neutrophils Percent Auto 47.4 % (50-75); Platelet Count 191 X10^3/uL (150-400); Red Blood Cell Count 4.68 X10^6/uL (4.0-5.2); Red Cell Distribution Width 12.8 % (11.6-14.8); White Blood Cell Count 4.6 X10^3/uL (4.5-11.0)
[2022-06-23 19:21] LABS: INR 1.2 (0.9-1.3); Prothrombin Time 13.6 SECONDS (10.1-12.7)
[2022-06-23 19:24] LABS: PTT Partial Thromboplastin Tim 33 SECONDS (26-36)
[2022-06-23 19:28] LABS: Alanine Aminotransferase 26 IU/L (<35); Albumin 4.9 g/dL (3.5-5.0); Albumin Globulin Ratio 1.5 (1.0-2.8); Alkaline Phosphatase 75 U/L (38-126); Aspartate Aminotransferase 27 IU/L (14-36); BUN Creatinine Ratio 13.8 (6-22); Bilirubin Total 0.5 mg/dL (0.2-1.3); Blood Urea Nitrogen 12 mg/dL (7-17); Calcium 9.4 mg/dL (8.4-10.2); Carbon Dioxide 29 mmol/L (22-32); Chloride 101 mmol/L (98-107); Creatine Kinase 45 U/L (30-135); Estimated Glomerular Filt Rate > 60 mL/min (>60); Globulin 3.2 g/dL (1.7-4.1); Glucose 98 mg/dL (70-100); HEMOLYSIS 32 (0-50); Lipase 185 U/L (23-300); Potassium 4.1 mmol/L (3.4-5.1); Sodium 139 mmol/L (137-145); Total Protein 8.1 g/dL (6.3-8.2)
[2022-06-23 19:39] LABS: Troponin I < 0.012 ng/mL (0.01-0.034)
--- NOTE | 2022-06-23 20:17 | ED_ITS ---
HPI - Dizziness General Chief Complaint: Dizziness Stated Complaint: BP 69/96 Time Seen by Provider: 06/23/22 20:17 Source: patient Mode of arrival: Ambulatory History of Present Illness HPI Narrative: 27-year-old female nonsmoker with history Crohn's, hidradenitis, psoriasis, irritable bowel syndrome and relatively recent gastric sleeve surgery performed in [place] presents at the request of her primary care provider for about 3 weeks of lightheadedness and near-syncope at night after taking her medications. She states she is had no medication change in multiple years but only started having trouble in the evening after taking her medications. She states on multiple occasions she has stood up and felt dizzy and lightheaded and nearly passed out. She denies any pain and has had no vomiting. She denies any current symptoms such as dizziness, weakness or lightheadedness. She has no chest pain or shortness of breath. She is had no nausea or vomiting. She denies diarrhea, constipation, dysuria or urgency. She denies any vaginal bleeding or discharge Related Data Home Medications Medication Instructions Recorded Confirmed diphenhydramine HCl 25 mg capsule 25 mg PO BEDTIME PRN Sleep 01/07/19 09/25/20 (Benadryl) dicyclomine 10 mg capsule 10 mg PO BID 06/01/20 09/25/20 famotidine PO 06/01/20 09/25/20 methylphenidate HCl 54 mg 54 mg PO DAILY 06/01/20 09/25/20 tablet,extended release 24 hr neomycin 500 mg tablet 1 gram PO BID 06/01/20 09/25/20 pantoprazole 40 mg tablet,delayed 40 mg PO DAILY 06/01/20 09/25/20 release rifaximin 550 mg tablet (Xifaxan) 550 mg PO TID 06/01/20 09/25/20 topiramate 100 mg tablet 100 mg PO BID 06/01/20 09/25/20 Previous Rx's Medication Instructions Recorded sumatriptan 5 mg/actuation nasal 5 mg intranasal ONCE PRN migraine 03/09/19 spray headache #1 ea fluconazole 150 mg tablet 150 mg PO Q3D 2 doses #2 tabs 06/26/20 (Diflucan) hydrocodone 5 mg-acetaminophen 325 1 tab PO Q4-6H PRN pain #7 tabs 06/26/20 mg tablet ([place]) sulfamethoxazole 800 1 tab PO BID #14 tabs 06/26/20 mg-trimethoprim 160 mg tablet (Bactrim DS) Allergies Allergy/AdvReac Type Severity Reaction Status Date / Time No Known Drug Allergies Allergy Verified 06/23/22 18:41 Review of Systems Review of Systems Narrative: GENERAL: See HPI HEENT: Denies sinus pain, ear pain, sore throat, difficulty swallowing, dizziness. RESPIRATORY: Denies dyspnea, cough, wheezing, hemoptysis, sputum. CARDIOVASCULAR: Denies chest pain, palpitations, orthopnea, edema, GASTROINTESTINAL: See HPI : Denies dysuria, frequency, incontinence, hematuria, urinary retention. MUSCULOSKELETAL: denies weakness, joint pain, or bony pain SKIN: Denies rash, skin lesions, or other NEUROLOGIC: Denies weakness, headache, numbness, change in speech, confusion, seizures, incoordination. PSYCHIATRIC: No concerning psychosocial issues. 12 point review of systems is negative except for those stated above Patient History Medical History Crohn's disease Headache History of gastric ulcer Inverse psoriasis Irritable bowel syndrome Labyrinthitis Situational anxiety Surgical History Status post cholecystectomy Family History Grandfather Diabetes mellitus Heart disease Father Cancer Social History Smoking Status: Never smoker second hand exposure: No substance use type: does not use Smoking Status: Never smoker alcohol intake frequency: holidays/special occasions only Substance Use Type: does not use Exam Narrative Exam Narrative: GENERAL: [27] year old patient appears stated age. Well-developed patient, in mild distress. HEAD: Atraumatic. Normocephalic. EYES: Pupils equal round and reactive. Extraocular motions intact. No scleral icterus. No injection or drainage. ENT: Nose without bleeding, purulent drainage. Throat without erythema, ton sillar hypertrophy or exudate. Airway patent. NECK: Trachea midline. Non tender CARDIOVASCULAR: Regular rate and rhythm without murmurs, gallops, or rubs. RESPIRATORY: Clear to auscultation. Breath sounds equal bilaterally. No wheezes, rales, or rhonchi. GASTROINTESTINAL: Abdomen soft, non-tender, nondistended. EXTREMITIES: No edema or joint tenderness. BACK: Nontender without deformity or crepitance. No flank tenderness. NEURO: AOx3. SKIN: No rash or erythema of visible areas Initial Vital Signs Initial Vital Signs: Vital Signs Temperature 98.1 F 06/23/22 18:42 Pulse Rate 94 H 06/23/22 18:42 Respiratory Rate 16 06/23/22 18:42 Blood Pressure 122/60 06/23/22 18:42 Pulse Oximetry 99 06/23/22 18:42 Oxygen Delivery Method 06/23/22 18:42 Course Orders Ordered: Discontinued Medications Sodium Chloride (Normal Saline 0.9%) 1,000 mls @ 1,000 mls/hr IV BOLUS ONE Stop: 06/23/22 21:16 Last Admin: 06/23/22 20:31 Dose: 1,000 mls/hr Documented By: CAT Vital Signs Vital signs: Vital Signs - 8 hr 06/23/22 18:42 Temperature 98.1 F Pulse Rate 94 H Respiratory Rate 16 Blood Pressure 122/60 Pulse Oximetry 99 Oxygen Delivery Method Room Air MDM - Dizziness Lab Data Result diagrams: 06/23/22 19:00 06/23/22 19:00 Labs: Lab Results 06/23/22 06/23/22 06/23/22 Range/Units 19:00 19:00 19:00 WBC 4.6 (4.5-11.0) X10^3/uL RBC 4.68 (4.0-5.2) X10^6/uL Hgb 14.1 (12.0-16.0) g/dL Hct 40.6 (36-46) % MCV 86.7 (80-100) fL MCH 30.1 (26-34) PG MCHC 34.7 (30-36) % RDW 12.8 (11.6-14.8) % Plt Count 191 (150-400) X10^3/uL Neut % (Auto) 47.4 L (50-75) % Lymph % (Auto) 45.0 H (25-40) % Nuckolls % (Auto) 6.4 (3-14) % Eos % (Auto) 0.2 L (2-4) % Baso % (Auto) 1.0 (0-2) % Neut # (Auto) 2200 (1269-4385) /uL Lymph # (Auto) 2100 (1193-1432) /uL N[place]olls # (Auto) 300 (0-900) /uL Eos # (Auto) 0 (0-450) /uL Baso # (Auto) 0 (0-100) /uL PT 13.6 H (10.1-12.7) SECONDS INR 1.2 (0.9-1.3) APTT 33 (26-36) SECONDS Sodium 139 (137-145) mmol/L Potassium 4.1 (3.4-5.1) mmol/L Chloride 101 (98-107) mmol/L Carbon Dioxide 29 (22-32) mmol/L BUN 12 (7-17) mg/dL Creatinine 0.87 (0.52-1.04) mg/dL Estimated GFR > 60 (>60) mL/min BUN/Creatinine Ratio 13.8 (6-22) Glucose 98 (70-100) mg/dL Calcium 9.4 (8.4-10.2) mg/dL Magnesium 2.0 (1.6-2.3) mg/dL Total Bilirubin 0.5 (0.2-1.3) mg/dL AST 27 (14-36) IU/L ALT 26 (<35) IU/L Alkaline Phosphatase 75 (38-126) U/L Total Creatine Kinase 45 (30-135) U/L CK-MB (CK-2) TNP CK-MB (CK-2) Rel Index TNP Troponin I < 0.012 (0.01-0.034) ng/mL Total Protein 8.1 (6.3-8.2) g/dL Albumin 4.9 (3.5-5.0) g/dL Globulin 3.2 (1.7-4.1) g/dL Albumin/Globulin Ratio 1.5 (1.0-2.8) Lipase 185 (23-300) U/L SARS-CoV-2 (PCR) (Negative) 06/23/22 Range/Units 20:45 WBC (4.5-11.0) X10^3/uL RBC (4.0-5.2) X10^6/uL Hgb (12.0-16.0) g/dL Hct (36-46) % MCV (80-100) fL MCH (26-34) PG MCHC (30-36) % RDW (11.6-14.8) % Plt Count (150-400) X10^3/uL Neut % (Auto) (50-75) % Lymph % (Auto) (25-40) % Nuckolls % (Auto) (3-14) % Eos % (Auto) (2-4) % Baso % (Auto) (0-2) % Neut # (Auto) (3622-8649) /uL Lymph # (Auto) (7067-7728) /uL Nuckolls # (Auto) (0-900) /uL Eos # (Auto) (0-450) /uL Baso # (Auto) (0-100) /uL PT (10.1-12.7) SECONDS INR (0.9-1.3) APTT (26-36) SECONDS Sodium (137-145) mmol/L Potassium (3.4-5.1) mmol/L Chloride (98-107) mmol/L Carbon Dioxide (22-32) mmol/L BUN (7-17) mg/dL Creatinine (0.52-1.04) mg/dL Estimated GFR (>60) mL/min BUN/Creatinine Ratio (6-22) Glucose (70-100) mg/dL Calcium (8.4-10.2) mg/dL Magnesium (1.6-2.3) mg/dL Total Bilirubin (0.2-1.3) mg/dL AST (14-36) IU/L ALT (<35) IU/L Alkaline Phosphatase (38-126) U/L Total Creatine Kinase (30-135) U/L CK-MB (CK-2) CK-MB (CK-2) Rel Index Troponin I (0.01-0.034) ng/mL Total Protein (6.3-8.2) g/dL Albumin (3.5-5.0) g/dL Globulin (1.7-4.1) g/dL Albumin/Globulin Ratio (1.0-2.8) Lipase (23-300) U/L SARS-CoV-2 (PCR) Negative (Negative) Point of Care Testing Test Results Negative Urine Dip Bedside Urine Glucose Negative Bedside Urine Bilirubin - Negative Bedside Urine Ketone + 15 Urine Specific [place] 1.025 Bedside Urine Occult Blood - Negative Bedside Urine pH 6.0 Bedside Urine Protein - Negative Bedside Urine Urobilinogen - Negative Bedside Urine Nitrite - Negative Bedside Urine Leukocytes - Negative Esterase MDM Narrative Medical decision making narrative: 27-year-old female nonsmoker with history Crohn's, hidradenitis, psoriasis, irritable bowel syndrome and relatively recent gastric sleeve surgery presents with nightly episodes of near-syncope after taking medications in the aftermath of surgery. She feels fine during the course of the day but routinely has episodes at night. After discussing with her primary care provider she was encouraged to present to the emergency department for evaluation. Multiple diagnoses considered including dehydration, electrolyte abnormality, medication reaction. Thankfully her labs are very reassuring and response to fluids is promising. She has normal orthostatic vital signs and is ambulatory through the department without symptoms. She does take spironolactone twice daily for the treatment of her acne and it is thought that possibly the use of this diuretic with some subtle dehydration secondary to the surgery might contribute to her symptoms. We had a shared decision-making occurrence in which we discussed various options including sticking with her normal medications to see if rehydration alone help fix her problems versus cutting out the nightly spironolactone as it may be playing a role. We discussed the pros and cons of each option including the risk of adjusting multiple variables versus not making what seems like a reasonable medication change. She understands risks and benefits and has been given extensive return precautions. Discharge Plan Departure Patient Disposition: Home Clinical Impression: Near syncope, Acute dehydration Instructions: Fainting Activity Restrictions/Additional Instructions: *You have been diagnosed with [near-syncope. As we discussed your labs are very reassuring and there is no indication of infection, anemia, electrolyte abnormality or other significant diagnosis that would require a specific intervention.] *What to do: *Please continue to take your regular medications as directed. *Please follow up with your primary care provider in 2-3 days, call for an appointment. Let them know you were seen in the Emergency Department and that we ask that you be seen in follow up. *Return to Emergency Department if you should have any new, worsening or concerning symptoms, such as [fever greater than 101 F, shaking chills, worsening pain, persistent vomiting or other bothersome symptoms] Prescriptions: No Action sumatriptan 5 mg/actuation spray,non-aerosol 5 mg NASAL ONCE PRN (Reason: migraine headache) Qty: 1 0RF Rx Instructions: into each nostril once; if headache remains, may repeat once after 2 hours famotidine PO pantoprazole 40 mg tablet,delayed release (DR/EC) 40 mg PO DAILY dicyclomine 10 mg capsule 10 mg PO BID topiramate 100 mg tablet 100 mg PO BID neomycin 500 mg tablet 1 gram PO BID Xifaxan 550 mg tablet 550 mg PO TID methylphenidate HCl 54 mg tablet extended release 24hr 54 mg PO DAILY diphenhydramine HCl [Benadryl] 25 mg Capsule 25 mg PO BEDTIME PRN (Reason: Sleep) fluconazole [Diflucan] 150 mg tablet 150 mg PO Q3D Qty: 2 0RF Rx Instructions: may repeat second dose 72 hrs after first dose if symptoms persist sulfamethoxazole-trimethoprim [Bactrim DS] 800-160 mg tablet 1 tab PO BID Qty: 14 0RF hydrocodone-acetaminophen [[place]] 5-325 mg tablet 1 tab PO Q4-6H PRN (Reason: pain) Qty: 7 0RF Referrals: Paras Leon DO [Primary Care Provider] - Visit Report Forms: Patient Portal/API
[2022-06-23] MEDS: SODIUM CHLORIDE 0.9% 1,000 ML 1000 ML IV (20:31)
[2022-06-23 21:17] VITALS: BP 101/56; BP 111/64; PULSE 70; PULSE 76
[2022-06-23 21:20] LABS: COVID19 -Nasal RAPID Negative (Negative)
== END 2022-06-23 21:57 | disposition home or self-care (01) ==
PROVIDERS: Emergency Provider Emergency Medicine; PCP Family Medicine
DX: R55 Syncope and collapse (principal); E86.0 Dehydration; Z20.822 Contact with and (suspected) exposure to COVID-19; Z79.899 Other long term (current) drug therapy; Z98.84 Bariatric surgery status
CPT/HCPCS: 36415; 71045; 80053; 81003; 81025; 82550; 83690; 83735; 84484; 85025; 85610; 85730; 87635; 93005; 93010; 96360; 99283; 99284; C9803